=== PATIENT | female | born 1965 | race Hispanic/Latino ===

== ENCOUNTER 2018-05-07 01:00 | Emergency (ER) | payer OTHER ==
[~2018-05-07] VITALS: Ht 157.5 cm; Wt 81.6 kg
[~2018-05-07 01:00] MED LIST: Acetaminophen PO; HYDR25TA9 PO; LISI-410 PO
[2018-05-07 01:15] VITALS: BP 98/52
[2018-05-07] MEDS ORDERED: NS 1000ML 1,000 ML IV STA (01:22)
[2018-05-07] MEDS ORDERED: ZOFRAN IV STA (01:22)
--- NOTE | 2018-05-07 01:29 | ER.PDOC ---
General Chief Complaint: Nausea,Vomiting,Diarrhea Stated Complaint: VOMITING Time seen by MD: 01:26 Source: patient Exam Limitations: no limitations History of Present Illness Initial Comments Vomiting and abdominal pain, patient has left colostomy and worried of obstruction. Timing/Duration: 1-3 hours Severity/Quality: moderate Radiation: no radiation Associated Symptoms: nausea/vomiting Exacerbated by: nothing Relieved By: nothing Allergies: Coded Allergies: No Known Allergies (Unverified , 06/16/14) Home Meds Active Scripts [Acetaminophen] 500 MG TABLET No Conflict Check, 500 MG PO Q6H PRN for PAIN, TABLET Prov:TOM YEH MD 06/18/14 Reported Medications Hydrochlorothiazide (HYDROCHLOROTHIAZIDE) 25 Mg Tablet, 1 TAB PO DAILY, #30 TAB 5 Refills 06/17/14 Lisinopril (LISINOPRIL) 20 Mg Tablet, 1 TAB PO DAILY, #30 TAB 5 Refills 06/16/14 Vital Signs First Vital Signs Date Time Temp Pulse Resp B/P (MAP) Pulse Ox O2 Delivery O2 Flow Rate FiO2 05/07/18 01:02 97.9 73 16 97.9 05/07/18 01:02 95 Room Air 05/07/18 01:15 98/52 (67) Last Vital Signs Date Time Temp Pulse Resp B/P (MAP) Pulse Ox O2 Delivery O2 Flow Rate FiO2 05/07/18 01:15 97.9 73 16 98/52 (67) 95 Room Air 97.9 Past Medical History Medical History: arrhythmia, heart valve disease, hypertension, other Surgical History: cholecystectomy, hysterectomy, other LMP (females 10-50): hysterectomy Social History Smoking: non-smoker Alcohol Use: none Drug Use: none Constitutional: no symptoms reported EENTM: no symptoms reported Respiratory: no symptoms reported Cardiovascular: no symptoms reported Gastrointestinal: see HPI Genitourinary: no symptoms reported All Other Systems: Reviewed and Negative Physical Exam General Appearance: No Apparent Distress, WD/WN HEENT: PERRL/EOMI, Normal ENT Inspection, TMs Normal, Pharynx Normal Neck: Non-Tender, Full Range of Motion, Supple, Normal Inspection Respiratory: chest non-tender, lungs clear, normal breath sounds, no respiratory distress, no accessory muscle use Cardiovascular: Normal Peripheral Pulses, Regular Rate, Rhythm, No Edema, No Gallop, No JVD, No Murmur Gastrointestinal: Normal Bowel Sounds, No Organomegaly, No Pulsatile Mass, Guarding, Tenderness, Other (left colostomy) Back: Normal Inspection, No CVA Tenderness, No Vertebral Tenderness Extremities: Normal Range of Motion, Non-Tender, Normal Inspection, No Pedal Edema, No Calf Tenderness, Normal Capillary Refill, Pelvis Stable Neurologic/Psychiatric: credit checker II-XII NML as Tested, No Motor/Sensory Deficits, Alert, Normal Mood/Affect, Oriented x 3 Skin: Normal Color, Warm/Dry Progress Progress CT abdomen/pelvis: 1. No explanation for patient's symptoms. 2. Previous ostomy left lower quadrant, cholecystectomy and hysterectomy. 3. Medullary calcifications in both kidneys. 4. Hepatic steatosis. Course Vitals & review Data Vital Sign - Last 24 Hours 05/07/18 05/07/18 05/07/18 01:02 01:02 01:15 Temp 97.9 97.9 97.9 97.9 97.9 97.9 Pulse 73 84 73 Resp 16 18 16 B/P (MAP) 98/52 (67) Pulse Ox 95 95 O2 Delivery Room Air Room Air Departure Time of Disposition: 04:04 Disposition: 01 HOME, SELF-CARE Impression: Primary Impression: Gastroenteritis Condition: Stable Referrals: PCP,UNKNOWN (PCP) PRIMARY CARE PROVIDER Additional Instructions: Zofran Tramadol Start feeding with clear liquids and advance diet as tolerated F/U with PCP in 2-3 days Duration or Time Spent with Pa: 90 mins CHARLEEN BAH MD May 07, 2018 01:29
[2018-05-07 01:35] LABS: BASOPHIL % 0.3 % (0.0-0.2); EOSINOPHIL % 0.3 % (0.0-5.0); HEMOGLOBIN 15.5 g/dL (12.0-15.0); LYMPHOCYTES # 1.1 10^3/uL (1.0-4.8); LYMPHOCYTES % 13.5 % (24.0-44.0); MEAN CELL HGB 30.2 pg (26-34); MEAN CELL HGB CONCENTRATION 33.5 g/dL (33-37); MEAN CORP VOLUME 89.9 fL (78-100); MONOCYTES # 0.4 10^3/uL (0.3-0.8); MONOCYTES % 4.9 % (5.0-12.0); NEUTROPHIL # 6.5 10^3/uL (1.8-7.7); NEUTROPHILS % 80.7 % (41.0-85.0); RED CELL DISTRIBUTION WIDTH 12.8 % (11.5-14.5)
--- NOTE | 2018-05-07 01:56 | PCM.EKG ---
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
[2018-05-07 01:59] LABS: CALCIUM 9.6 mg/dL (8.4-10.5); CARBON DIOXIDE 29.3 mmol/L (20.0-32)
[2018-05-07] MEDS ORDERED: ZOFRAN ONE (02:48)
[2018-05-07] MEDS ORDERED: NS 1000ML 1,000 ML ONE (02:49)
--- NOTE | 2018-05-07 03:02 | DIREP ---
PROCEDURE:CT ABD/PELVIS WITHOUT CONTRAST TECHNIQUE:Axial cuts were obtained from the dome of the diaphragm to the ischial tuberosities. No intravenous contrast was given. The images were viewed at lung and soft tissue settings. Sagittal and coronal reconstructions are provided. COMPARISON:None. INDICATIONS:Abdominal pain and vomiting FINDINGS: LOWER CHEST:Streaky changes both lung bases posteriorly consistent with subsegmental atelectasis. LIVER:Diffuse fatty changes with no focal lesions. BILIARY:Previous cholecystectomy. PANCREAS:Normal. SPLEEN:Normal. URINARY TRACT:Small bilateral medullary calcifications. ADRENALS:Normal. AORTA/VASCULAR:Normal. RETROPERITONEUM:Normal. BOWEL/MESENTERY:Normal. ABDOMINAL WALL:Ostomy left lower quadrant. PELVIS:Previous hysterectomy. BONES:Normal. OTHER:Normal. CONCLUSION: 1. No explanation for patient's symptoms. 2. Previous ostomy left lower quadrant, cholecystectomy and hysterectomy. 3. Medullary calcifications in both kidneys. 4. Hepatic steatosis. Dictated by: Bobby Witt M.D. on 05/07/2018 at 02:50 AM
[2018-05-07 03:18] VITALS: BP 136/80
[2018-05-07] MEDS ORDERED: MORPHINE SULFATE ONE (03:38)
[2018-05-07] MEDS ORDERED: MORPHINE SULFATE IV STA (03:39)
[2018-05-07 03:47] LABS: BILIRUBIN,URINE NEGATIVE (NEGATIVE); UROBILINOGEN,URINE NORMAL (NEGATIVE)
[2018-05-07 03:49] VITALS: BP 131/85
[2018-05-07 03:51] LABS: APPEARANCE,URINE CLEAR (CLEAR); UA COLOR DARK YELLOW (YELLOW)
--- NOTE | 2018-05-07 04:15 | NUR ---
IV REMOVED IV FROM RT HAND. CATHETER ALL INTACT. HELD PRESSURE AND NO FURTHER BLEEDING. APPLIED COTTON AND COBAN.
[2018-05-07 04:26] VITALS: BP 136/80
== END 2018-05-07 04:15 | disposition home or self-care (01) ==
LOC: ER 01:00 → EDBD 01:00 → ER 04:15
DX: K52.9 Noninfective gastroenteritis and colitis, unspecified (principal); I49.9 Cardiac arrhythmia, unspecified; I38 Endocarditis, valve unspecified; I10 Essential (primary) hypertension; Z79.899 Other long term (current) drug therapy
CPT/HCPCS: 36415; 74176; 80053; 81002; 83690; 85025; 93005; 96361; 96374; 96375; 99285; J2270; J2405; J7030; Q9965

== ENCOUNTER 2020-06-11 23:04 | Inpatient (IN) | payer OTHER ==
[~2020-06-11] VITALS: Ht 157.5 cm; Wt 99.8 kg
[2020-06-11 23:21] VITALS: BP_SYST 103; BP_DIAS 62; BP_DIAS 82
[2020-06-11] MEDS ORDERED: NS 1000ML 1,000 ML IV STA (23:25)
[2020-06-11] MEDS ORDERED: ZOFRAN IV STA (23:25)
[2020-06-11] MEDS ORDERED: NS 1000ML 1,000 ML ONE (23:28)
[2020-06-11] MEDS ORDERED: ZOFRAN ONE (23:29)
[2020-06-11] MEDS ORDERED: SUBLIMAZE IV STA (23:29)
--- NOTE | 2020-06-11 23:31 | ER.PDOC ---
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 No report of fever. Timing/Duration: 4-6 hours, getting worse Severity/Quality: moderate, severe Radiation: LUQ, LLQ Associated Symptoms: nausea/vomiting Allergies: Coded Allergies: No Known Allergies (Unverified , 06/16/14) Home Meds Active Scripts [Acetaminophen] 500 MG TABLET No Conflict Check, 500 MG PO Q6H PRN for PAIN, TABLET Prov:TOM YEH MD 06/18/14 Reported Medications Hydrochlorothiazide (HYDROCHLOROTHIAZIDE) 25 Mg Tablet, 1 TAB PO DAILY, #30 TAB 5 Refills 06/17/14 Lisinopril (LISINOPRIL) 20 Mg Tablet, 1 TAB PO DAILY, #30 TAB 5 Refills 06/16/14 Vital Signs First Vital Signs Date Time Temp Pulse Resp B/P (MAP) Pulse Ox O2 Delivery O2 Flow Rate FiO2 06/11/20 23:21 98.2 71 18 06/11/20 23:21 103/62 (76) 98 Last Vital Signs Date Time Temp Pulse Resp B/P (MAP) Pulse Ox O2 Delivery O2 Flow Rate FiO2 06/11/20 23:21 98.2 71 18 98 06/11/20 23:21 103/62 (76) Past Medical History Medical History: cancer (colon cancer with resection and colostomy), diabetes ("pre diabetic"), hypertension Surgical History: cholecystectomy, , hysterectomy Family History Significant Family History: no pertinent family hx Social History Smoking: non-smoker Alcohol Use: none Drug Use: none Constitutional: no symptoms reported EENTM: no symptoms reported Respiratory: no symptoms reported Cardiovascular: no symptoms reported Gastrointestinal: abdominal pain, constipated (no stool output in colostomy today), nausea, vomiting Genitourinary: no symptoms reported Musculoskeletal: no symptoms reported Skin: no symptoms reported All Other Systems: Reviewed and Negative Physical Exam General Appearance: No Apparent Distress, Obese HEENT: PERRL/EOMI Neck: Full Range of Motion, Supple, Normal Inspection Respiratory: lungs clear, normal breath sounds, no respiratory distress, no accessory muscle use Cardiovascular: Regular Rate, Rhythm, No Murmur Gastrointestinal: Hypoactive bowel sounds, Soft, Tenderness Extremities: Normal Range of Motion, Non-Tender, Normal Inspection, No Pedal Edema, No Calf Tenderness Neurologic/Psychiatric: Alert, Normal Mood/Affect, Oriented x 3 Skin: Normal Color, Warm/Dry Results/Orders Results/Orders Orders - JAGRUTI HERNANDEZ DO Cbc With Auto Diff (06/11/20 23:25) Comprehensive Metabolic Panel (06/11/20 23:25) Amylase (06/11/20 23:25) Lipase (06/11/20:) PT (06/11/20:25) Ct Abd/Pel With Iv Contrast (06/11/20:) Partial Thromboplastin Time. (06/11/20:25) Urinalysis (06/11/20:) Saline Lock (06/11/20:25) Ondansetron Hcl/Pf (Zofran) (06/11/20 23:25) 0.9 % Sodium Chloride (Ns 1000ml) (06/11/20 23:25) Fentanyl Citrate/Pf (Sublimaze) (06/11/20 23:29) 0.9 % Sodium Chloride (Ns 1000ml) (06/11/20 23:28) Ondansetron Hcl/Pf (Zofran) (06/11/20 23:29) Promethazine Hcl (Phenergan) (06/12/20 00:13) Promethazine Hcl (Phenergan) (06/12/20 00:19) 0.9 % Sodium Chloride (Ns 1000ml) (06/12/20 02:15) Promethazine Hcl (Phenergan) (06/12/20 02:15) Fentanyl Citrate/Pf (Sublimaze) (06/12/20 02:17) Promethazine Hcl (Phenergan) (06/12/20 02:17) 0.9 % Sodium Chloride (Ns 1000ml) (06/12/20 02:17) Vital Signs Date Time Temp Pulse Resp B/P (MAP) Pulse Ox O2 Delivery O2 Flow Rate FiO2 06/11/20 23:21 98.2 71 18 98 06/11/20 23:21 98.2 71 18 103/62 (76) 98 06/11/20 23:21 98.2 71 18 Administered Medications Medications (Trade) Dose Ordered Sig/Mandie Route PRN Reason Start Time Stop Time Status Last Admin Dose Admin Fentanyl Citrate (Sublimaze) 50 mcg STAT STAT IV 06/11/20 23:29 06/11/20 23:30 UNV 06/11/20 23:43 50 MCG Ondansetron HCl (Zofran) 4 mg STAT STAT IV 06/11/20 23:25 06/11/20 23:27 DC 06/11/20 23:43 4 MG Promethazine HCl (Phenergan) 25 mg STAT STAT IV 06/12/20 00:19 06/12/20 00:20 DC 06/12/20 00:20 25 MG Sodium Chloride 1,000 ml @ 1,200 mls/hr Q50M STAT IV 06/11/20 23:25 06/12/20 00:14 DC 06/11/20 23:43 1,200 MLS/HR Laboratory Tests Test 06/11/20 23:20 White Blood Count 9.3 10^3/uL (4.5-11.0) Red Blood Count 5.18 10^6/uL (4.00-5.20) Hemoglobin 15.9 g/dL (12.0-15.0) H Hematocrit 47.1 % (36.0-46.0) H Mean Corpuscular Volume 90.9 fL (78-100) Mean Corpuscular Hemoglobin 30.7 pg (26-34) Mean Corpuscular Hemoglobin Concent 33.8 g/dL (33-36.5) Red Cell Distribution Width 11.9 % (11.5-14.5) Platelet Count 282 10^3/uL (150-400) Mean Platelet Volume 10.7 fL (7.8-11.0) Neutrophils (%) (Auto) 72.0 % (41.0-85.0) Lymphocytes (%) (Auto) 20.5 % (24.0-44.0) L Monocytes (%) (Auto) 6.7 % (5.0-12.0) Neutrophils # (Auto) 6.7 10^3/uL (1.8-7.7) Lymphocytes # (Auto) 1.90 10^3/uL1 (1.0-4.8) Monocytes # (Auto) 0.6 10^3/uL (0.3-0.8) Absolute Immature Granulocyte (auto 0 10^3 u/L (0-2) Absolute Eosinophils (auto) 0.1 10^3/uL (0.0-0.2) Immature Granulocytes % 0.00 % (0.00-0.50) Eosinophils % 0.5 % (0.0-5.0) Basophils % 0.3 % (0.0-0.2) H Basophils # 0.0 10^3/uL (0.0-0.1) Prothrombin Time 10.8 SEC (9.3-11.3) Prothrombin Time INR (Non-Therap) 1.1 Activated Partial Thromboplast Time 27.5 SEC (24.67-30.72) Sodium Level 138 mmol/L (132-145) Potassium Level 3.6 mmol/L (3.6-5.2) Chloride Level 102.0 mmol/L (96-109) Carbon Dioxide Level 23.7 mmol/L (20.0-32) Anion Gap 15.9 Blood Urea Nitrogen 16 mg/dL (7-18) Creatinine 0.93 mg/dL (0.59-1.40) Estimated GFR () 76.0 (>/=60) Est GFR (CKD-EPI)(Non-Afr Kyrgyz) 62.8 (>/=60) BUN/Creatinine Ratio 17.0 Glucose Level 160 mg/dL (70-110) H Calcium Level 9.8 mg/dL (8.4-10.5) Total Bilirubin 0.7 mg/dL (0.2-1.0) Aspartate Amino Transferase (AST) 46 U/L (0-35) H Alanine Aminotransferase (ALT) 77 U/L (12-78) Alkaline Phosphatase 117 U/L (50-136) Total Protein 8.0 g/dL (6.4-8.2) Albumin 3.9 g/dL (3.4-5.0) Globulin 4.1 Albumin/Globulin Ratio 0.951 Amylase Level 76 U/L (25-115) Lipase 109 U/L (114-286) L Progress Progress WBC WNL, gluc 160, AST 46--otherwise chemistry WNL. EKG/XRAY/CT/US CT Comments: no acute abdominal/pelvic abnormalities Consult/PCP Time Consult/PCP Called: 02:20 Consult/PCP: Dr. Alexander Reason/Comments: admit to [facility] ER DEPART Departure Time of Disposition: 02:22 Disposition: 09 ADMITTED INPATIENT Impression: Primary Impression: Abdominal pain Additional Impression: Intractable nausea and vomiting Condition: Improved Referrals: PCP,UNKNOWN (PCP) PRIMARY CARE PROVIDER Duration or Time Spent with Pa: 30 min Problem Qualifiers Primary Impression: Abdominal pain Abdominal location: left upper quadrant Qualified Codes: R10.12 - Left upper quadrant pain JAGRUTI HERNANDEZ DO Jun 11, 2020 23:31
[2020-06-11 23:57] LABS: BASOPHIL % 0.3 % (0.0-0.2); EOSINOPHIL # 0.1 10^3/uL (0.0-0.2); EOSINOPHIL % 0.5 % (0.0-5.0); LYMPHOCYTES % 20.5 % (24.0-44.0); MEAN CORP HGB 30.7 pg (26-34); MONOCYTES # 0.6 10^3/uL (0.3-0.8); MONOCYTES % 6.7 % (5.0-12.0); NEUTROPHIL # 6.7 10^3/uL (1.8-7.7); PLATELET COUNT 282 10^3/uL (150-400); RED CELL DISTRIBUTION WIDTH 11.9 % (11.5-14.5)
[2020-06-12] MEDS ORDERED: PHENERGAN ONE ×2 (00:13→02:15)
[2020-06-12] MEDS ORDERED: PHENERGAN IV STA ×2 (00:19→02:17)
[2020-06-12 01:09] LABS: CALCIUM 9.8 mg/dL (8.4-10.5); CARBON DIOXIDE 23.7 mmol/L (20.0-32)
--- NOTE | 2020-06-12 02:11 | DIREP ---
PROCEDURE:CT ABDOMEN/PELVIS W/ CONTRAST COMPARISON:[facility], CT, CT ABD/PELVIS W/O, 05/07/2018, 02:34 AM. INDICATIONS:abdominal pain with vomiting TECHNIQUE:Axial images were created through the abdomen and pelvis with non-ionic intravenous contrast material. No oral contrast was administered. Sagittal and coronal reconstructions were performed from source images. FINDINGS: LUNG BASES:Areas of linear atelectasis in both lung bases. LIVER:Diffuse decreased attenuation. No masses. BILIARY:The gallbladder is surgically absent. There is no biliary ductal dilatation. PANCREAS:Normal. No lesion, fluid collection, ductal dilatation, or atrophy. SPLEEN:Normal. No enlargement or focal lesion. ADRENALS:Normal. No mass or enlargement. URINARY TRACT:Normal. No focal lesions or hydronephrosis. AORTA/VASCULAR:Normal. No aneurysm. RETROPERITONEUM:Normal. No mass or adenopathy. BOWEL/MESENTERY:Prior distal colectomy with left lower quadrant colostomy. A nondilated loop of small bowel protrudes through the ostomy opening into the subcutaneous tissue. No obstruction, free air, or free fluid are present. The appendix appears normal. ABDOMINAL WALL:Small supraumbilical ventral hernia containing only fat. PELVIC ORGANS:The uterus is surgically absent. No visible mass. BONES:Normal for age. No bony lesion or acute fracture. OTHER:Negative. CONCLUSION: 1. No acute abdomen/pelvis abnormalities. 2. Prior distal colectomy with left lower quadrant colostomy. Parastomal hernia present containing a nondilated small bowel loop. 3. Fatty liver. 4. Small fat containing ventral hernia. 5. Prior cholecystectomy and hysterectomy. 6. Areas of linear atelectasis in the lung bases. Dictated by: Gordon Espinosa M.D. on 06/12/2020 at 01:58 AM
[2020-06-12] MEDS ORDERED: NS 1000ML 1,000 ML ONE (02:15)
[2020-06-12] MEDS ORDERED: NS 1000ML 1,000 ML IV STA (02:17)
[2020-06-12] MEDS ORDERED: SUBLIMAZE IV STA (02:17)
[2020-06-12] MEDS ORDERED: PHENERGAN IV PRN ×2 (02:30→03:30)
[2020-06-12] MEDS ORDERED: NS 1000ML 1,000 ML IV ONE (02:30)
--- NOTE | 2020-06-12 02:46 | NUR ---
HOSPITALIST AT BEDSIDE TO SPEAK WITH PATIENT PRIOR TO TRANSFER UPSTAIRS.
[2020-06-12] MEDS ORDERED: ZOFRAN IV PRN (03:30)
--- NOTE | 2020-06-12 03:30 | NUR ---
NGT HOSPITALIST SPOKE WITH PATIENT ABOUT PLACING AN NGT FOR COMFORT. PATIENT AGREED. ATTEMPTED TO PLACED NGT TO LEFT NARE, PATIENT UNABLE TO TOLERATE PROCEDURE, SOON TUBE GETS TO THE BACK OF HER THROAT SHE BEGINS SCREAMING, PULLING STAFF ARMS AWAY AND GAGGING, CAUSING NGT TO COIL UP IN MOUTH. HOSPITALIST NOTIFIED, STATES TO LEAVE OUT AT THIS TIME, ATTEMPT AGAIN AT LATER TIME.
--- NOTE | 2020-06-12 03:42 | PCM.HP ---
History of Present Illness Hx of Present Illness This is a 54 year old French speaking women who presents with upper abdominal pain starting Jun 11 in the afternoon. Historical details are limited due to language barrier. She has vomited several times and has continued to vomit in the ER despite dosed of phenergan and zofran. She has a hx of colon cancer treated with distal colectomy in [facility] in 2007. In 2013 she presented here with bowel obstruction and she improved with gastric decompression. She does not see outside physicians. Otherwise she has been in good health. PMH- Htn. takes lisinopril and hctz. She takes occasional tylenol for unspecified pain. She does not smoke or drink. She answered no to use of illegal drugs. Her believes she had no BM on Jun 11. Her labs are unremarkable. Travel History EBOLA RISK:Travel to/contact w: No Review of Systems Gastrointestinal: Nausea, Vomiting, Abdominal Pain Allergies: Coded Allergies: No Known Allergies (Unverified , 06/12/20) Scheduled Hydrochlorothiazide (Hydrochlorothiazide), 1 TAB PO DAILY, (Reported) Lisinopril (Lisinopril), 1 TAB PO DAILY, (Reported) Scheduled PRN [Acetaminophen], 500 MG PO Q6H PRN for PAIN VTE VTE Risk Score VTE Risk: Score 0-1 = Low Risk (Aggressive mobilization; early ambulation; no VTE prophylaxis required) Score 2: Moderate Risk (Intermittent/Pneumatic Compression Device OR Lovenox/Heparin/Coumadin) Score 3-4: High Risk (Intermittent/Pneumatic Compression Device AND Lovenox/Heparin/Coumadin) Score > or =5: Highest Risk (Intermittent/Pneumatic Compression Device AND Lovenox/Heparin/Coumadin) Exam Vital Signs Vital Signs Date Time Temp Pulse Resp B/P (MAP) Pulse Ox O2 Delivery O2 Flow Rate FiO2 06/11/20 23:21 98.2 71 18 98 06/11/20 23:21 103/62 (76) General Appearance: Alert, Cooperative, mild distress HEENT: Atraumatic, EOMI Respiratory: Clear to auscultation, Normal air movement Cardiovascular: Regular rate, Normal S1, Normal S2, No murmurs Abdominal: Soft, Other (colostomy in LLQ with small amt of soft stool. abdomen is mildly tender left side upper and mid abdomen. ) Extremities: No clubbing, No edema, Normal pulses Skin: No rash, No breakdown Assessment/Plan Assessment/Plan Assessment/Plan Left sided abdominal pain possibly related to parastomal hernia but without overt CT finding of bowel obstruction. She did not tolerated attempted NG tube. She seems to have settled down a bit so will just observe on the floor with some NS plus 20 kcl at 100 cc/hr. Toxic etiologies seem unlikely. Exact etiology unknown at this time. Patient History: Patient reports no known family medical history. SHELLEY QUIÑONEZ MD Jun 12, 2020 03:42 MARIAJOSE WRIHGT MD Jun 12, 2020 07:13
[2020-06-12 03:45] VITALS: BP 162/94
[2020-06-12] MEDS: NS 1000ML/KCL 20MEQ 1,000 ML IV SCH ×2 (04:49→15:57)
[2020-06-12 05:02] LABS: APPEARANCE,URINE CLEAR (CLEAR); BILIRUBIN,URINE NEGATIVE (NEGATIVE); UA COLOR YELLOW (YELLOW)
[2020-06-12 07:15] VITALS: BP 153/75
[2020-06-12] MEDS: SUBLIMAZE IV PRN ×2 (08:26→16:08)
--- NOTE | 2020-06-12 09:06 | DIREP ---
PROCEDURE:XR ABDOMEN 2 VIEWS COMPARISON:[facility], CT, CT ABD/PELVIS W/ CONTRAST, 06/12/2020, 01:20 AM. INDICATIONS:parostomal hernia TECHNIQUE:Flat and upright views of the abdomen are provided. FINDINGS: BOWEL GAS PATTERN:On the upright film, the right hemidiaphragm is elevated. No free air is seen. Small amount of gas identified in the small bowel along with gaseous distention of the stomach. No small bowel obstruction is seen. The mildly distended loops of small bowel may represent a mild ileus or partial obstruction. CALCIFICATIONS:None significant. Status post cholecystectomy. The renal and the Sos outlines are not adequately visualized. No organomegaly or pathologic calcifications are seen. LUNG BASES:Clear. BONES:Normal. OTHER:No additional findings. Contrast identified within the urinary bladder which may be related to the CT scan performed a few hours earlier. CONCLUSION:Mild gaseous distention of loops of bowel in the left abdomen, question mild ileus. No perforation is seen. Dictated by: Jay Geronimo MD on 06/12/2020 at 09:03 AM
[2020-06-12] MEDS: ZOFRAN IV PRN (11:06)
--- NOTE | 2020-06-12 11:27 | NUR ---
Patient vomited 30 ml of brown liquid Zofran given as per order will continue to monitor for med effectiveness.
[2020-06-12 11:30] VITALS: BP 131/87
--- NOTE | 2020-06-12 13:59 | PRM.PN ---
Subjective Subjective Date: Jun 12, 2020 Time: 14:34 Subjective Patient alert and oriented. Denies any fever. Complain of abdominal pain to the both right lower quadrant and left lower quadrant. She is producing a stool in the colostomy. She is not passing gas. Denies any shortness of breath Patient History: Patient reports no known family medical history. VTE VTE Risk Total Score: 2 VTE Risk Score VTE Risk: Score 0-1 = Low Risk (Aggressive mobilization; early ambulation; no VTE prophylaxis required) Score 2: Moderate Risk (Intermittent/Pneumatic Compression Device OR Lovenox/Heparin/Coumadin) Score 3-4: High Risk (Intermittent/Pneumatic Compression Device AND Lovenox/Heparin/Coumadin) Score > or =5: Highest Risk (Intermittent/Pneumatic Compression Device AND Lovenox/Heparin/Coumadin) Review of Systems Gastrointestinal: Nausea, Vomiting, Abdominal Pain Allergies: Coded Allergies: No Known Allergies (Unverified , 06/12/20) Scheduled Hydrochlorothiazide (Hydrochlorothiazide), 1 TAB PO DAILY, (Reported) Lisinopril (Lisinopril), 1 TAB PO DAILY, (Reported) Scheduled PRN [Acetaminophen], 500 MG PO Q6H PRN for PAIN Objective Vitals and I/O Vital Sign - Last 24 Hours 06/11/20 06/11/20 06/11/20 06/12/20 23:21 23:21 23:21 03:45 Temp 98.2 98.2 98.2 98.7 Pulse 71 71 71 98 Resp 18 18 18 18 B/P (MAP) 103/62 (76) 162/94 (116) Pulse Ox 98 98 94 O2 Delivery Room Air 06/12/20 06/12/20 06/12/20 06/12/20 03:45 03:47 07:15 11:30 Temp 98.9 98.3 Pulse 78 86 Resp 18 18 B/P (MAP) 153/75 (101) 131/87 (102) Pulse Ox 95 98 O2 Delivery Room Air Room Air Nasal Canula Nasal Canula O2 Flow Rate 2.00 2.00 Intake and Output 06/12/20 07:00 Intake Total 0 ml Output Total 0 ml Balance 0 ml General: Alert, Cooperative, mild distress HEENT: Atraumatic, EOMI Lungs: Clear to auscultation, Normal air movement Heart: Regular rate, Normal S1, Normal S2, No murmurs Abdomen: Soft, Other (colostomy in LLQ with small amt of soft stool. abdomen is mildly tender left side upper and mid abdomen. ) Extremities: No clubbing, No edema, Normal pulses All Results(Lab/Rad) Laboratory Tests Test 06/11/20 23:20 06/12/20 03:15 White Blood Count 9.3 10^3/uL Red Blood Count 5.18 10^6/uL Hemoglobin 15.9 g/dL Hematocrit 47.1 % Mean Corpuscular Volume 90.9 fL Mean Corpuscular Hemoglobin 30.7 pg Mean Corpuscular Hemoglobin Concent 33.8 g/dL Red Cell Distribution Width 11.9 % Platelet Count 282 10^3/uL Mean Platelet Volume 10.7 fL Neutrophils (%) (Auto) 72.0 % Lymphocytes (%) (Auto) 20.5 % Monocytes (%) (Auto) 6.7 % Neutrophils # (Auto) 6.7 10^3/uL Lymphocytes # (Auto) 1.90 10^3/uL1 Monocytes # (Auto) 0.6 10^3/uL Absolute Immature Granulocyte (auto 0 10^3 u/L Absolute Eosinophils (auto) 0.1 10^3/uL Immature Granulocytes % 0.00 % Eosinophils % 0.5 % Basophils % 0.3 % Basophils # 0.0 10^3/uL Prothrombin Time 10.8 SEC Prothrombin Time INR (Non-Therap) 1.1 Activated Partial Thromboplast Time 27.5 SEC Sodium Level 138 mmol/L Potassium Level 3.6 mmol/L Chloride Level 102.0 mmol/L Carbon Dioxide Level 23.7 mmol/L Anion Gap 15.9 Blood Urea Nitrogen 16 mg/dL Creatinine 0.93 mg/dL Estimated GFR () 76.0 Est GFR (CKD-EPI)(Non-Afr [place]an) 62.8 BUN/Creatinine Ratio 17.0 Glucose Level 160 mg/dL Calcium Level 9.8 mg/dL Total Bilirubin 0.7 mg/dL Aspartate Amino Transf (AST/SGOT) 46 U/L Alanine Aminotransferase (ALT/SGPT) 77 U/L Alkaline Phosphatase 117 U/L Total Protein 8.0 g/dL Albumin 3.9 g/dL Globulin 4.1 Albumin/Globulin Ratio 0.951 Amylase Level 76 U/L Lipase 109 U/L Urine Collection Type CCMS Urine Color YELLOW Urine Appearance CLEAR Urine Bilirubin NEGATIVE MG/DL Urine Ketones NEGATIVE Urine Specific [place] 1.015 Urine pH 7.5 Urine Protein NEGATIVE Urine Urobilinogen 1.0 Urine Nitrate NEGATIVE Urine Leukocyte Esterase NEGATIVE Urine Blood NEGATIVE Urine Glucose NEGATIVE Current Medications Medications (Trade) Dose Ordered Sig/Mandie Route PRN Reason Start Time Stop Time Status Last Admin Dose Admin Ondansetron HCl (Zofran) 4 mg STAT STAT IV 06/11/20 23:25 06/11/20 23:27 DC 06/11/20 23:43 Sodium Chloride 1,000 ml @ 1,200 mls/hr Q50M STAT IV 06/11/20 23:25 06/12/20 00:14 DC 06/11/20 23:43 Fentanyl Citrate (Sublimaze) 50 mcg STAT STAT IV 06/11/20 23:29 06/12/20 05:23 DC 06/11/20 23:43 Sodium Chloride 1,000 ml @ ud STK-MED ONCE .ROUTE 06/11/20 23:28 06/11/20 23:30 DC Ondansetron HCl (Zofran) 4 mg STK-MED ONCE .ROUTE 06/11/20 23:29 06/11/20 23:31 DC Promethazine HCl (Phenergan) 25 mg STK-MED ONCE .ROUTE 06/12/20 00:13 06/12/20 00:15 DC Promethazine HCl (Phenergan) 25 mg STAT STAT IV 06/12/20 00:19 06/12/20 00:20 DC 06/12/20 00:20 Sodium Chloride 1,000 ml @ ud STK-MED ONCE .ROUTE 06/12/20 02:15 06/12/20 02:17 DC Promethazine HCl (Phenergan) 25 mg STK-MED ONCE .ROUTE 06/12/20 02:15 06/12/20 02:17 DC Fentanyl Citrate (Sublimaze) 50 mcg STAT STAT IV 06/12/20 02:17 06/12/20 02:19 DC 06/12/20 02:23 Promethazine HCl (Phenergan) 25 mg STAT STAT IV 06/12/20 02:17 06/12/20 02:19 DC 06/12/20 02:23 Sodium Chloride 1,000 ml @ 1,200 mls/hr Q50M STAT IV 06/12/20 02:17 06/12/20 03:06 DC 06/12/20 02:23 Sodium Chloride 1,000 ml @ 150 mls/hr OT ONCE IV 06/12/20 02:30 06/12/20 09:09 DC 06/12/20 02:45 Promethazine HCl (Phenergan) 25 mg Q6H PRN IV NAUSEA / VOMITING 06/12/20 02:30 07/12/20 02:29 Fentanyl Citrate (Sublimaze) 50 mcg Q4H PRN IV pain 06/12/20 02:30 07/12/20 02:29 06/12/20 08:26 Ondansetron HCl (Zofran) 4 mg Q4H PRN IV NAUSEA / VOMITING 06/12/20 03:30 07/12/20 03:29 06/12/20 11:06 Ondansetron HCl (Zofran) 4 mg Q4H PRN IV NAUSEA / VOMITING 06/12/20 03:30 07/12/20 03:29 Promethazine HCl (Phenergan) 25 mg Q6H PRN IV NAUSEA / VOMITING 06/12/20 03:30 07/12/20 03:29 Potassium Chloride/Sodium Chloride 1,000 ml @ 100 mls/hr Q10H IV 06/12/20 03:30 07/12/20 03:29 06/12/20 04:49 Course Sepsis Screening Results: Posi: NEGATIVE Sepsis Qualifier/Stage: NO DEFINITE RISK Duration or Total Time Spent w: 30 min Vitals & review Data Vital Sign - Last 24 Hours 06/11/20 06/11/20 06/11/20 06/12/20 23:21 23:21 23:21 03:45 Temp 98.2 98.2 98.2 98.7 Pulse 71 71 71 98 Resp 18 18 18 18 B/P (MAP) 103/62 (76) 162/94 (116) Pulse Ox 98 98 94 O2 Delivery Room Air 06/12/20 06/12/20 06/12/20 06/12/20 03:45 03:47 07:15 11:30 Temp 98.9 98.3 Pulse 78 86 Resp 18 18 B/P (MAP) 153/75 (101) 131/87 (102) Pulse Ox 95 98 O2 Delivery Room Air Room Air Nasal [place] Nasal [place] O2 Flow Rate 2.00 2.00 Intake and Output 06/12/20 07:00 Intake Total 0 ml Output Total 0 ml Balance 0 ml Laboratory Tests Test 06/11/20 23:20 06/12/20 03:15 White Blood Count 9.3 10^3/uL Red Blood Count 5.18 10^6/uL Hemoglobin 15.9 g/dL Hematocrit 47.1 % Mean Corpuscular Volume 90.9 fL Mean Corpuscular Hemoglobin 30.7 pg Mean Corpuscular Hemoglobin Concent 33.8 g/dL Red Cell Distribution Width 11.9 % Platelet Count 282 10^3/uL Mean Platelet Volume 10.7 fL Neutrophils (%) (Auto) 72.0 % Lymphocytes (%) (Auto) 20.5 % Monocytes (%) (Auto) 6.7 % Neutrophils # (Auto) 6.7 10^3/uL Lymphocytes # (Auto) 1.90 10^3/uL1 Monocytes # (Auto) 0.6 10^3/uL Absolute Immature Granulocyte (auto 0 10^3 u/L Absolute Eosinophils (auto) 0.1 10^3/uL Immature Granulocytes % 0.00 % Eosinophils % 0.5 % Basophils % 0.3 % Basophils # 0.0 10^3/uL Prothrombin Time 10.8 SEC Prothrombin Time INR (Non-Therap) 1.1 Activated Partial Thromboplast Time 27.5 SEC Sodium Level 138 mmol/L Potassium Level 3.6 mmol/L Chloride Level 102.0 mmol/L Carbon Dioxide Level 23.7 mmol/L Anion Gap 15.9 Blood Urea Nitrogen 16 mg/dL Creatinine 0.93 mg/dL Estimated GFR () 76.0 Est GFR (CKD-EPI)(Non-Afr Ugandan) 62.8 BUN/Creatinine Ratio 17.0 Glucose Level 160 mg/dL Calcium Level 9.8 mg/dL Total Bilirubin 0.7 mg/dL Aspartate Amino Transf (AST/SGOT) 46 U/L Alanine Aminotransferase (ALT/SGPT) 77 U/L Alkaline Phosphatase 117 U/L Total Protein 8.0 g/dL Albumin 3.9 g/dL Globulin 4.1 Albumin/Globulin Ratio 0.951 Amylase Level 76 U/L Lipase 109 U/L Urine Collection Type CCMS Urine Color YELLOW Urine Appearance CLEAR Urine Bilirubin NEGATIVE MG/DL Urine Ketones NEGATIVE Urine Specific [place] 1.015 Urine pH 7.5 Urine Protein NEGATIVE Urine Urobilinogen 1.0 Urine Nitrate NEGATIVE Urine Leukocyte Esterase NEGATIVE Urine Blood NEGATIVE Urine Glucose NEGATIVE Current Medications Medications (Trade) Dose Ordered Sig/Mandie PRN Reason Start Time Stop Time Status Last Admin Fentanyl Citrate (Sublimaze) 50 mcg Q4H PRN pain 06/12/20 02:30 07/12/20 02:29 06/12/20 08:26 Ondansetron HCl (Zofran) 4 mg Q4H PRN NAUSEA / VOMITING 06/12/20 03:30 07/12/20 03:29 06/12/20 11:06 Ondansetron HCl (Zofran) 4 mg Q4H PRN NAUSEA / VOMITING 06/12/20 03:30 07/12/20 03:29 Potassium Chloride/Sodium Chloride 1,000 ml @ 100 mls/hr Q10H 06/12/20 03:30 07/12/20 03:29 06/12/20 04:49 Promethazine HCl (Phenergan) 25 mg Q6H PRN NAUSEA / VOMITING 06/12/20 02:30 07/12/20 02:29 Promethazine HCl (Phenergan) 25 mg Q6H PRN NAUSEA / VOMITING 06/12/20 03:30 07/12/20 03:29 LEVEL 1 SEPSIS INFECTION CRITE: Abdominal Pain O2 Sat by Pulse Oximetry: 98 Oxygen Flow Rate: 2.00 Assessment/Plan Assessment/Plan Assessment/Plan Left sided abdominal pain possibly related to parastomal hernia but without overt CT finding of bowel obstruction. She did not tolerated attempted NG tube. She seems to have settled down a bit so will just observe on the floor with some NS plus 20 kcl at 100 cc/hr. Toxic etiologies seem unlikely. Exact etiology unknown at this time. Plan 1. Small bowel obstruction with parastomal hernia. Abdominal pain seems to be better with pain medication. She is afebrile and the abdomen is nondistended. We will repeat the abdomen x-ray With the finding of Mild gaseous distention of loops of bowel in the left abdomen, question mild ileus. No perforation is seen.Patient is still n.p.o. She is passing stool through the colostomy. Because of the findings on the x-ray and the physical exam I consider this patient should be n.p.o. until we had a small bowel series. If shows obstruction will discuss with surgeon. Plan Continue IV fluid N.p.o. Small bowel series shows contrast in the stomach. Surgeon consult was done overnight. DW Dr. Garcia 2. History of stage III colon cancer with resection terminal colostomy. Patient has a recent endoscopy done at [facility] for follow-up with the finding of no evidence of recurrence of the cancer. Patient has been admitted twice for the same symptoms of small bowel obstruction and perhaps he may need a referral to surgeon for correction of the parastomal hernia 3. Prediabetes Monitor blood sugars MARIAJOSE WRIGHT MD Jun 12, 2020 13:59
--- NOTE | 2020-06-12 15:47 | DIREP ---
PROCEDURE:XRAY ABDOMEN SINGLE VW COMPARISON:[facility], CR, XRAY ABDOMEN 2VW, 06/12/2020, 08:25 AM. INDICATIONS:ABD PAIN; VOMITING FINDINGS: BOWEL GAS PATTERN:[id number] distention small bowel loops. CALCIFICATIONS:None significant. LUNG BASES:Mild opacity left lung base suggesting pneumonia or atelectasis. BONES:Normal. OTHER:Oral contrast in the stomach. CONCLUSION:Oral contrast in the stomach. [id number] distention of small bowel loops. Correlate for obstruction. Dictated by: Kevin Montelongo M.D. on 06/12/2020 at 02:44 PM Read in [place]
[2020-06-12 16:45] VITALS: BP 142/90
--- NOTE | 2020-06-12 17:13 | NUR ---
Right hand IV not flushing ,Patient c/o pain not flushing , removed.
[2020-06-12] MEDS ORDERED: DILAUDID ONE (18:33)
[2020-06-12] MEDS ORDERED: DILAUDID IV ONE (19:00)
--- NOTE | 2020-06-12 19:06 | PCM.HP ---
HISTORY & PHYSICAL HISTORY & PHYSICAL CHIEF COMPLAINT: Right upper quadrant pain HISTORY OF PRESENT ILLNESS: 54-year-old female presents to the emergency room with nausea and vomiting x4 days. She reports that she has had something like this once before and although ended up doing was doing a CAT scan. She denies any intolerance to food. She r eports the pain is located in the right upper quadrant and radiates to her back. She states that the pain is sharp in nature. She is reporting that the fentanyl is not doing much for her. She reports that she underwent chemo radiation and what sounds like an APR for rectal cancer back in 2007. And her current colostomy is designed to be permanent. She is continuing to have normal ostomy output with no change in amount or nature of the ostomy output. She reports that she is only vomiting solid foods she is able to take in liquids without vomiting. ALLERGIES: No known drug allergies CURRENT MEDICATIONS: See med list PAST MEDICAL HISTORY: Rectal cancer, elevated cholesterol, high blood pressure PAST SURGICAL HISTORY: APR SOCIAL HISTORY: Denies tobacco alcohol or drug use FAMILY HISTORY: Father: Prostate cancer no history of colon cancer in the family REVIEW OF SYSTEM: Constitutional: Denies fevers chills or sick contacts HEENT: Denies issues with her eyes, hearing, swallowing, enlarged lymph nodes CVS: Positive for high blood pressure and cholesterol Lungs: Denies shortness of breath OR cough Abdomen: Abdominal pain in the right upper quadrant, positive for nausea, vomiting. Extremities: Full range of motion Neuro: Denies headache, blurry vision, double vision, lightheadedness, syncope Psych: Denies anxiety depression PHYSICAL EXAMINATION: VITAL SIGNS: See vitals in chart GENERAL: Patient in mild distress HEENT: NCAT, Pupils equal round reactive to light, extraocular muscles intact, sclera white, hearing intact, neck supple, NG tube present, no LAD LUNGS: Clear to auscultation bilaterally HEART: Regular rate and rhythm ABDOMEN: Soft, tenderness to palpation right upper quadrant, bowel sounds hypo-, ostomy present left lower quadrant, abdomen obese, nondistended EXTREMITIES: 2+ distal pulses In all extremities NEUROLOGIC: Alert and oriented x3, GCS 15 LABORATORY DATA Laboratory results reviewed, CT scans reviewed, abdominal x-rays IMPRESSION: 54-year-old female with a left lower quadrant parastomal hernia containing small bowel but currently no evidence of obstruction, with right upper quadrant pain radiating to her back PLAN: 1. Would currently treat patient likes partial small bowel obstruction versus ileus with NG tube decompression and serial exams and x-rays. 2. Currently unlikely that left lower quadrant parastomal hernia and right upper quadrant pain are related. 3. We will get ultrasound of right upper quadrant to look for possible signs of cholecystitis vs symptomatic cholelithiasis. 4. Surgery to follow. 5. Change pain medicine to dialudid and toradol 6. Recommend stopping the SBFT and hooking up the NGT to LWIS now ADIA GARCIA MD Jun 12, 2020 19:06
--- NOTE | 2020-06-12 19:20 | NUR ---
Patient c/o of pain dilauded 0.5mg given as per order, NGT on right nare in low suction well tolerated inserted, patient afebrile , voided adequate amount of clear yellow urine, soft stool noted on colostomy bag, patient Endorsed to night auditor nurse sable after all due cares rendered.
[2020-06-12 20:35] VITALS: BP 165/78
--- NOTE | 2020-06-12 20:53 | DIREP ---
PROCEDURE:CHEST 1 VIEW COMPARISON:None. INDICATIONS:NG PLACEMENT FINDINGS: LUNGS/PLEURA:Elevation of the right hemidiaphragm to the level of the hilum. Mild right basilar atelectasis. Left lower lung obscured by the cardiac silhouette. No definite acute infiltrate. CARDIAC:Prominent cardiac silhouette and normal pulmonary vascularity. MEDIASTINUM:Normal BONES:Normal OTHER:NGT in the gastric body. CONCLUSION:Limited study. No acute process seen. Dictated by: Елена Villela MD on 06/12/2020 at 08:48 PM
[2020-06-12] MEDS: TORADOL IV SCH (21:26)
[2020-06-12 23:50] VITALS: BP 126/75
--- NOTE | 2020-06-12 23:56 | NUR ---
Blood sugar Bedside blood glucose obtained. WBG = 154. Nurse notified.
[2020-06-13] MEDS: NS 1000ML/KCL 20MEQ 1,000 ML IV SCH ×3 (00:04→19:44)
[2020-06-13 04:51] VITALS: BP 153/96
[2020-06-13] MEDS: TORADOL IV SCH ×2 (05:03→13:41)
[2020-06-13 05:58] LABS: BASOPHIL % 0.1 % (0.0-0.2); LYMPHOCYTES # 1.08 10^3/uL1 (1.0-4.8); MONOCYTES # 0.7 10^3/uL (0.3-0.8); MONOCYTES % 10.2 % (5.0-12.0); NEUTROPHILS % 73.7 % (41.0-85.0); PLATELET COUNT 273 10^3/uL (150-400); RED CELL DISTRIBUTION WIDTH 12.3 % (11.5-14.5)
[2020-06-13 06:38] LABS: CALCIUM 8.6 mg/dL (8.4-10.5); CARBON DIOXIDE 26.4 mmol/L (20.0-32)
[2020-06-13 08:00] VITALS: BP 137/91
--- NOTE | 2020-06-13 08:04 | DIREP ---
PROCEDURE:XRAY ACUTE ABD INCL UPRIGHT CHEST TECHNIQUE :A single PA view of the chest is provided. Flat and upright views of the abdomen are also provided. COMPARISON:[facility], CT, CT ABD/PELVIS W/ CONTRAST, 06/12/2020, 01:20 AM. [facility], CR, XRAY CHEST SINGLE VW, 06/12/2020, 08:20 PM. INDICATIONS:sbo FINDINGS: LUNGS/PLEURA:Bibasilar atelectasis. No definite effusion. No pneumothorax. VASCULATURE:Normal. Unremarkable pulmonary vasculature. CARDIAC:Heart size accentuated by poor inspiratory effort MEDIASTINUM:Normal. No visible mass or adenopathy. BONES:Normal. No fracture or visible bony lesion. OTHER:Nasogastric tube in position. BOWEL GAS PATTERN:Minimal contrast within the stomach. There is only a small amount of bowel gas, limiting evaluation. Distended small bowel, in keeping with the given history of small bowel obstruction FREE AIR:None. CALCIFICATIONS:None significant. OTHER:Cholecystectomy clips CONCLUSION:Nasogastric tube in position, with a few scattered loops of dilated small bowel, in keeping with given history of small bowel obstruction. Free air is not identified. Lungs reveal bibasilar atelectasis. Dictated by: Gregory Christy MD on 06/13/2020 at 08:01 AM
[2020-06-13] MEDS: ZOFRAN IV PRN (09:19)
[2020-06-13 11:00] VITALS: BP 156/93
--- NOTE | 2020-06-13 12:39 | PRM.PN ---
Progress Note Subjective Physician Notes: Emesis x1 last night. Patient currently without pain. Reporting minimal output from ostomy. Objective Review IO, Exams,& Results Problems Acute/Active Problems: (1) Abdominal pain (2) Intractable nausea and vomiting (3) Small bowel obstruction Vital Signs Date Time Temp Pulse Resp B/P (MAP) Pulse Ox O2 Delivery O2 Flow Rate FiO2 06/13/20 04:51 97.5 86 18 153/96 (115) 91 Nasal [place] 06/12/20 21:00 2.00 28 Intake and Output 06/13/20 07:00 Intake Total 1390 ml Output Total 800 ml Balance 590 ml Intake Oral 360 ml IV Total 1030 ml Output Urine Total 400 ml Gastric Drainage Total 400 ml # Voids 3 Laboratory Tests Test 06/11/20 23:20 06/12/20 03:15 06/12/20 23:56 06/13/20 04:56 White Blood Count 9.3 10^3/uL 6.7 10^3/uL Red Blood Count 5.18 10^6/uL 4.61 10^6/uL Hemoglobin 15.9 g/dL 14.3 g/dL Hematocrit 47.1 % 42.6 % Mean Corpuscular Volume 90.9 fL 92.4 fL Mean Corpuscular Hemoglobin 30.7 pg 31.0 pg Mean Corpuscular Hemoglobin Concent 33.8 g/dL 33.6 g/dL Red Cell Distribution Width 11.9 % 12.3 % Platelet Count 282 10^3/uL 273 10^3/uL Mean Platelet Volume 10.7 fL 9.5 fL Neutrophils (%) (Auto) 72.0 % 73.7 % Lymphocytes (%) (Auto) 20.5 % 16.0 % Monocytes (%) (Auto) 6.7 % 10.2 % Neutrophils # (Auto) 6.7 10^3/uL 5.0 10^3/uL Lymphocytes # (Auto) 1.90 10^3/uL1 1.08 10^3/uL1 Monocytes # (Auto) 0.6 10^3/uL 0.7 10^3/uL Absolute Immature Granulocyte (auto 0 10^3 u/L 0 10^3 u/L Absolute Eosinophils (auto) 0.1 10^3/uL 0.0 10^3/uL Immature Granulocytes % 0.00 % 0.00 % Eosinophils % 0.5 % 0.0 % Basophils % 0.3 % 0.1 % Basophils # 0.0 10^3/uL 0.0 10^3/uL Prothrombin Time 10.8 SEC Prothrombin Time INR (Non-Therap) 1.1 Activated Partial Thromboplast Time 27.5 SEC Sodium Level 138 mmol/L 144 mmol/L Potassium Level 3.6 mmol/L 4.2 mmol/L Chloride Level 102.0 mmol/L 108.0 mmol/L Carbon Dioxide Level 23.7 mmol/L 26.4 mmol/L Anion Gap 15.9 13.8 Blood Urea Nitrogen 16 mg/dL 21 mg/dL Creatinine 0.93 mg/dL 0.93 mg/dL Estimated GFR () 76.0 76.0 Est GFR (CKD-EPI)(Non-Afr [place]) 62.8 62.8 BUN/Creatinine Ratio 17.0 22.0 Glucose Level 160 mg/dL 147 mg/dL Calcium Level 9.8 mg/dL 8.6 mg/dL Total Bilirubin 0.7 mg/dL 0.6 mg/dL Aspartate Amino Transf (AST/SGOT) 46 U/L 39 U/L Alanine Aminotransferase (ALT/SGPT) 77 U/L 68 U/L Alkaline Phosphatase 117 U/L 95 U/L Total Protein 8.0 g/dL 6.7 g/dL Albumin 3.9 g/dL 3.2 g/dL Globulin 4.1 3.5 Albumin/Globulin Ratio 0.951 0.914 Amylase Level 76 U/L Lipase 109 U/L Urine Collection Type CCMS Urine Color YELLOW Urine Appearance CLEAR Urine Bilirubin NEGATIVE MG/DL Urine Ketones NEGATIVE Urine Specific [place] 1.015 Urine pH 7.5 Urine Protein NEGATIVE Urine Urobilinogen 1.0 Urine Nitrate NEGATIVE Urine Leukocyte Esterase NEGATIVE Urine Blood NEGATIVE Urine Glucose NEGATIVE Bedside Glucose 154 Test 06/13/20 05:45 Bedside Glucose 156 Current Medications Medications (Trade) Dose Ordered Sig/Mandie PRN Reason Start Time Stop Time Status Last Admin Hydromorphone HCl (Dilaudid) 0.5 mg Q4H PRN PAIN 4-6 06/12/20 19:30 07/12/20 19:29 Hydromorphone HCl (Dilaudid) 1 mg Q4H PRN PAIN 7 - 10 06/12/20 19:30 07/12/20 19:29 Ketorolac Tromethamine (Toradol) 30 mg Q8HR 06/12/20 22:00 06/14/20 14:01 06/13/20 05:03 Ondansetron HCl (Zofran) 4 mg Q4H PRN NAUSEA / VOMITING 06/12/20 03:30 07/12/20 03:29 06/13/20 09:19 Potassium Chloride/Sodium Chloride 1,000 ml @ 100 mls/hr Q10H 06/12/20 03:30 07/12/20 03:29 06/13/20 09:30 Promethazine HCl (Phenergan) 25 mg Q6H PRN NAUSEA / VOMITING 06/12/20 02:30 07/12/20 02:29 Orders - ADIA GARCIA MD Ngt To Lis (06/12/20 17:41) Insert Ng Tube (06/12/20 17:41) Hydromorphone Hcl (Dilaudid) (06/12/20 19:30) Hydromorphone Hcl (Dilaudid) (06/12/20 19:30) Ketorolac Tromethamine (Toradol) (06/12/20 22:00) Us Gallbladder (06/13/20 06:00) Xr Abd W/Chest (06/13/20 06:00) Heart: Regular rate, Normal S1, Normal S2, No murmurs Abdomen: Soft, No tenderness, Other (Hypoactive bowel sounds) Lungs: Clear to auscultation, Normal air movement Assessment & Plan: Assessment 54-year-old female with parastomal hernia and resolution of right upper quadrant pain. Plan 1. Encourage ambulation 2. Continue NG tube 3. Abdominal x-rays unremarkable without evidence of dilation to suggest bowel obstruction. Although certainly read like obstructive pattern by radiologist. 4. Repeat x-ray in the morning ADIA GARCIA MD Jun 13, 2020 12:39
--- NOTE | 2020-06-13 13:08 | DIREP ---
PROCEDURE:US ABDOMEN LIMITED (SINGLE ORGAN - QUAD) COMPARISON:[facility], CT, CT ABD/PELVIS W/ CONTRAST, 06/12/2020, 01:[address] [facility], CT, CT ABD/PELVIS W/O, 05/07/2018, 02:34 AM. INDICATIONS:RUQ pain TECHNIQUE:High resolution sonographic examination was performed of the abdomen. FINDINGS: PANCREAS:The pancreas is obscured by overlying bowel gas. LIVER:Diffuse increased hepatic echogenicity, suggesting significant hepatic steatosis. There is decreased sonographic penetration which limits evaluation of the deeper hepatic segments. GALLBLADDER:The gallbladder is nonvisualized and appears surgically absent on the previous CT. BILIARY:The common duct measures up to approximately 5 mm diameter and is within normal limits. RIGHT KIDNEY:The right kidney measures approximately 9.5 x 5.2 x 5.3 cm. No hydronephrosis. OTHER:No significant ascites. CONCLUSION: 1. Previous cholecystectomy. No biliary ductal dilatation. 2. Significant hepatic steatosis. Dictated [facility]: [facility] Phys[facility] on 06/13/2020 at 12:34 PM
[2020-06-13 16:35] VITALS: BP 135/84
--- NOTE | 2020-06-13 17:24 | PRM.PN ---
Subjective Subjective Date: Jun 13, 2020 Time: 17:17 Subjective Patient complaining of decrease of the abdominal pain. She is not passing gas through the colostomy. She has old stool from yesterday. Denies any fever. She is n.p.o. with nasogastric tube draining about 500 mL overnight Patient History: FHx: prostate cancer VTE VTE Risk Total Score: 2 VTE Risk Score VTE Risk: Score 0-1 = Low Risk (Aggressive mobilization; early ambulation; no VTE prophylaxis required) Score 2: Moderate Risk (Intermittent/Pneumatic Compression Device OR Lovenox/Heparin/Coumadin) Score 3-4: High Risk (Intermittent/Pneumatic Compression Device AND Lovenox/Heparin/Coumadin) Score > or =5: Highest Risk (Intermittent/Pneumatic Compression Device AND Lovenox/Heparin/Coumadin) Review of Systems Gastrointestinal: Nausea, Vomiting, Abdominal Pain Allergies: Coded Allergies: No Known Allergies (Unverified , 06/12/20) Scheduled Hydrochlorothiazide (Hydrochlorothiazide), 1 TAB PO DAILY, (Reported) Lisinopril (Lisinopril), 1 TAB PO DAILY, (Reported) Scheduled PRN [Acetaminophen], 500 MG PO Q6H PRN for PAIN Objective Vitals and I/O Vital Sign - Last 24 Hours 06/12/20 06/12/20 06/12/20 06/13/20 20:35 21:00 23:50 01:25 Temp 98.8 98.3 Pulse 103 88 Resp 18 16 17 B/P (MAP) 165/78 (107) 126/75 (92) Pulse Ox 88 91 90 O2 Delivery Room Air Nasal Cannula Room Air Room Air O2 Flow Rate 2.00 FiO2 28 06/13/20 06/13/20 06/13/20 06/13/20 04:51 08:00 08:00 08:00 Temp 97.5 98.8 Pulse 86 77 Resp 18 18 B/P (MAP) 153/96 (115) 137/91 (106) Pulse Ox 91 95 O2 Delivery Nasal Canula Room Air Nasal Canula Room Air O2 Flow Rate 2.00 06/13/20 06/13/20 10:00 11:00 Temp 98.3 Pulse 77 84 Resp 18 18 B/P (MAP) 156/93 (114) Pulse Ox 95 94 O2 Delivery Room Air Room Air FiO2 21 Intake and Output0 06/13/20 07:00 Intake Total 1390 ml Output Total 800 ml Balance 590 ml General: Alert, Cooperative, mild distress HEENT: Atraumatic, EOMI Lungs: Clear to auscultation, Normal air movement Heart: Regular rate, Normal S1, Normal S2, No murmurs Abdomen: Soft, No tenderness, Other (Hypoactive bowel sounds) Extremities: No clubbing, No edema, Normal pulses Skin: No rashes Neuro: Normal gait, Normal speech, Strength at 5/5 X4 ext, Normal tone, Sensation intact Psych/Mental Status: Mental status NL, Mood NL All Results(Lab/Rad) Laboratory Tests Test 06/11/20 23:20 06/12/20 03:15 White Blood Count 9.3 10^3/uL Red Blood Count 5.18 10^6/uL Hemoglobin 15.9 g/dL Hematocrit 47.1 % Mean Corpuscular Volume 90.9 fL Mean Corpuscular Hemoglobin 30.7 pg Mean Corpuscular Hemoglobin Concent 33.8 g/dL Red Cell Distribution Width 11.9 % Platelet Count 282 10^3/uL Mean Platelet Volume 10.7 fL Neutrophils (%) (Auto) 72.0 % Lymphocytes (%) (Auto) 20.5 % Monocytes (%) (Auto) 6.7 % Neutrophils # (Auto) 6.7 10^3/uL Lymphocytes # (Auto) 1.90 10^3/uL1 Monocytes # (Auto) 0.6 10^3/uL Absolute Immature Granulocyte (auto 0 10^3 u/L Absolute Eosinophils (auto) 0.1 10^3/uL Immature Granulocytes % 0.00 % Eosinophils % 0.5 % Basophils % 0.3 % Basophils # 0.0 10^3/uL Prothrombin Time 10.8 SEC Prothrombin Time INR (Non-Therap) 1.1 Activated Partial Thromboplast Time 27.5 SEC Sodium Level 138 mmol/L Potassium Level 3.6 mmol/L Chloride Level 102.0 mmol/L Carbon Dioxide Level 23.7 mmol/L Anion Gap 15.9 Blood Urea Nitrogen 16 mg/dL Creatinine 0.93 mg/dL Estimated GFR () 76.0 Est GFR (CKD-EPI)(Non-Afr Venezuelan) 62.8 BUN/Creatinine Ratio 17.0 Glucose Level 160 mg/dL Calcium Level 9.8 mg/dL Total Bilirubin 0.7 mg/dL Aspartate Amino Transf (AST/SGOT) 46 U/L Alanine Aminotransferase (ALT/SGPT) 77 U/L Alkaline Phosphatase 117 U/L Total Protein 8.0 g/dL Albumin 3.9 g/dL Globulin 4.1 Albumin/Globulin Ratio 0.951 Amylase Level 76 U/L Lipase 109 U/L Urine Collection Type CCMS Urine Color YELLOW Urine Appearance CLEAR Urine Bilirubin NEGATIVE MG/DL Urine Ketones NEGATIVE Urine Specific [place] 1.015 Urine pH 7.5 Urine Protein NEGATIVE Urine Urobilinogen 1.0 Urine Nitrate NEGATIVE Urine Leukocyte Esterase NEGATIVE Urine Blood NEGATIVE Urine Glucose NEGATIVE Current Medications Medications (Trade) Dose Ordered Sig/Mandie Route PRN Reason Start Time Stop Time Status Last Admin Dose Admin Ondansetron HCl (Zofran) 4 mg STAT STAT IV 06/11/20 23:25 06/11/20 23:27 DC 06/11/20 23:43 Sodium Chloride 1,000 ml @ 1,200 mls/hr Q50M STAT IV 06/11/20 23:25 06/12/20 00:14 DC 06/11/20 23:43 Fentanyl Citrate (Sublimaze) 50 mcg STAT STAT IV 06/11/20 23:29 06/12/20 05:23 DC 06/11/20 23:43 Sodium Chloride 1,000 ml @ ud STK-MED ONCE .ROUTE 06/11/20 23:28 06/11/20 23:30 DC Ondansetron HCl (Zofran) 4 mg STK-MED ONCE .ROUTE 06/11/20 23:29 06/11/20 23:31 DC Promethazine HCl (Phenergan) 25 mg STK-MED ONCE .ROUTE 06/12/20 00:13 06/12/20 00:15 DC Promethazine HCl (Phenergan) 25 mg STAT STAT IV 06/12/20 00:19 06/12/20 00:20 DC 06/12/20 00:20 Sodium Chloride 1,000 ml @ ud STK-MED ONCE .ROUTE 06/12/20 02:15 06/12/20 02:17 DC Promethazine HCl (Phenergan) 25 mg STK-MED ONCE .ROUTE 06/12/20 02:15 06/12/20 02:17 DC Fentanyl Citrate (Sublimaze) 50 mcg STAT STAT IV 06/12/20 02:17 06/12/20 02:19 DC 06/12/20 02:23 Promethazine HCl (Phenergan) 25 mg STAT STAT IV 06/12/20 02:17 06/12/20 02:19 DC 06/12/20 02:23 Sodium Chloride 1,000 ml @ 1,200 mls/hr Q50M STAT IV 06/12/20 02:17 06/12/20 03:06 DC 06/12/20 02:23 Sodium Chloride 1,000 ml @ 150 mls/hr OT ONCE IV 06/12/20 02:30 06/12/20 09:09 DC 06/12/20 02:45 Promethazine HCl (Phenergan) 25 mg Q6H PRN IV NAUSEA / VOMITING 06/12/20 02:30 07/12/20 02:29 Fentanyl Citrate (Sublimaze) 50 mcg Q4H PRN IV pain 06/12/20 02:30 07/12/20 02:29 06/12/20 08:26 Ondansetron HCl (Zofran) 4 mg Q4H PRN IV NAUSEA / VOMITING 06/12/20 03:30 07/12/20 03:29 06/12/20 11:06 Ondansetron HCl (Zofran) 4 mg Q4H PRN IV NAUSEA / VOMITING 06/12/20 03:30 07/12/20 03:29 Promethazine HCl (Phenergan) 25 mg Q6H PRN IV NAUSEA / VOMITING 06/12/20 03:30 07/12/20 03:29 Potassium Chloride/Sodium Chloride 1,000 ml @ 100 mls/hr Q10H IV 06/12/20 03:30 07/12/20 03:29 06/12/20 04:49 Course Sepsis Screening Results: Posi: NEGATIVE Sepsis Qualifier/Stage: NO DEFINITE RISK Duration or Total Time Spent w: 30 min Vitals & review Data Vital Sign - Last 24 Hours 06/11/20 06/11/20 06/11/20 06/12/20 23:21 23:21 23:21 03:45 Temp 98.2 98.2 98.2 98.7 Pulse 71 71 71 98 Resp 18 18 18 18 B/P (MAP) 103/62 (76) 162/94 (116) Pulse Ox 98 98 94 O2 Delivery Room Air 06/12/20 06/12/20 06/12/20 06/12/20 03:45 03:47 07:15 11:30 Temp 98.9 98.3 Pulse 78 86 Resp 18 18 B/P (MAP) 153/75 (101) 131/87 (102) Pulse Ox 95 98 O2 Delivery Room Air Room Air Nasal Canula Nasal Canula O2 Flow Rate 2.00 2.00 Intake and Output 06/12/20 07:00 Intake Total 0 ml Output Total 0 ml Balance 0 ml Laboratory Tests Test 06/11/20 23:20 06/12/20 03:15 White Blood Count 9.3 10^3/uL Red Blood Count 5.18 10^6/uL Hemoglobin 15.9 g/dL Hematocrit 47.1 % Mean Corpuscular Volume 90.9 fL Mean Corpuscular Hemoglobin 30.7 pg Mean Corpuscular Hemoglobin Concent 33.8 g/dL Red Cell Distribution Width 11.9 % Platelet Count 282 10^3/uL Mean Platelet Volume 10.7 fL Neutrophils (%) (Auto) 72.0 % Lymphocytes (%) (Auto) 20.5 % Monocytes (%) (Auto) 6.7 % Neutrophils # (Auto) 6.7 10^3/uL Lymphocytes # (Auto) 1.90 10^3/uL1 Monocytes # (Auto) 0.6 10^3/uL Absolute Immature Granulocyte (auto 0 10^3 u/L Absolute Eosinophils (auto) 0.1 10^3/uL Immature Granulocytes % 0.00 % Eosinophils % 0.5 % Basophils % 0.3 % Basophils # 0.0 10^3/uL Prothrombin Time 10.8 SEC Prothrombin Time INR (Non-Therap) 1.1 Activated Partial Thromboplast Time 27.5 SEC Sodium Level 138 mmol/L Potassium Level 3.6 mmol/L Chloride Level 102.0 mmol/L Carbon Dioxide Level 23.7 mmol/L Anion Gap 15.9 Blood Urea Nitrogen 16 mg/dL Creatinine 0.93 mg/dL Estimated GFR () 76.0 Est GFR (CKD-EPI)(Non-Afr Venezuelan) 62.8 BUN/Creatinine Ratio 17.0 Glucose Level 160 mg/dL Calcium Level 9.8 mg/dL Total Bilirubin 0.7 mg/dL Aspartate Amino Transf (AST/SGOT) 46 U/L Alanine Aminotransferase (ALT/SGPT) 77 U/L Alkaline Phosphatase 117 U/L Total Protein 8.0 g/dL Albumin 3.9 g/dL Globulin 4.1 Albumin/Globulin Ratio 0.951 Amylase Level 76 U/L Lipase 109 U/L Urine Collection Type CCMS Urine Color YELLOW Urine Appearance CLEAR Urine Bilirubin NEGATIVE MG/DL Urine Ketones NEGATIVE Urine Specific [place] 1.015 Urine pH 7.5 Urine Protein NEGATIVE Urine Urobilinogen 1.0 Urine Nitrate NEGATIVE Urine Leukocyte Esterase NEGATIVE Urine Blood NEGATIVE Urine Glucose NEGATIVE Current Medications Medications (Trade) Dose Ordered Sig/Mandie PRN Reason Start Time Stop Time Status Last Admin Fentanyl Citrate (Sublimaze) 50 mcg Q4H PRN pain 06/12/20 02:30 07/12/20 02:29 06/12/20 08:26 Ondansetron HCl (Zofran) 4 mg Q4H PRN NAUSEA / VOMITING 06/12/20 03:30 07/12/20 03:29 06/12/20 11:06 Ondansetron HCl (Zofran) 4 mg Q4H PRN NAUSEA / VOMITING 06/12/20 03:30 07/12/20 03:29 Potassium Chloride/Sodium Chloride 1,000 ml @ 100 mls/hr Q10H 06/12/20 03:30 07/12/20 03:29 06/12/20 04:49 Promethazine HCl (Phenergan) 25 mg Q6H PRN NAUSEA / VOMITING 06/12/20 02:30 07/12/20 02:29 Promethazine HCl (Phenergan) 25 mg Q6H PRN NAUSEA / VOMITING 06/12/20 03:30 07/12/20 03:29 LEVEL 1 SEPSIS INFECTION CRITE: Abdominal Pain LEVEL 2-SIRS (LIST ALL THAT AP: None/Not assessed Cardiovascular Evidence: Not Assessed or None Hematologic Evidence: None/Not assessed Hepatic Evidence: None/Not assessed Metabolic Evidence: None/Not assessed Neurological Evidence: None/Not assessed Respiratory Evidence: None/Not assessed Renal Evidence: None/Not assessed O2 Sat by Pulse Oximetry: 94 Oxygen Flow Rate: 2.00 Assessment/Plan Assessment/Plan Assessment/Plan 54-year-old female presented with a complaint of abdominal pain. Initially found to have suspected a small bowel obstruction on CAT scan of the abdomen. She has no improvement of the pain and appears distended. A new KUB was done and shows evidence of gas distention. Small bowel series shows.Oral contrast in the stomach. [id number] distention of small bowel loops. Correlate for obstruction.She had a nasogastric tube placed for decompression 1. Small bowel obstruction with parastomal hernia. 2. History of stage III colon cancer with resection terminal colostomy. 3. Prediabetes Plan 1. Small bowel obstruction with parastomal hernia. Abdominal pain seems to be better with pain medication. She is afebrile and the abdomen is nondistended. We will repeat the abdomen x-ray With the finding of Mild gaseous distention of loops of bowel in the left abdomen, question mild ileus. No perforation is seen.Patient is still n.p.o. She is passing stool through the colostomy. Because of the findings on the x-ray and the physical exam I consider this patient should be n.p.o. until we had a small bowel series. If shows obstruction will discuss with surgeon. Bowel status with contrast shows Oral contrast in the stomach. [id number] distention of small bowel loops. Correlate for obstruction.Patient was evaluated by surgeon who considered the patient to have the nasogastric tube placed for decompression.Nasogastric tube was placed and x-ray shows evidence of NGT in the stomach. After NGT was placed to LIS, the patient had about 500 mL of greenish material output. Plan Continue IV fluid N.p.o. Nasogastric tube to LIS Surgeon consult was done overnight. RAMÍREZ Garcia 2. History of stage III colon cancer with resection terminal colostomy. Patient has a recent endoscopy done at [facility] for follow-up with the finding of no evidence of recurrence of the cancer. Patient has been admitted twice for the same symptoms of small bowel obstruction and perhaps he may need a referral to surgeon for correction of the parastomal hernia 3. Prediabetes Monitor blood sugars MARIAJOSE WRIGHT MD Jun 13, 2020 17:24
--- NOTE | 2020-06-13 19:48 | NUR ---
Patient in bed NGT on low suction 1400 emptied , pain management effective, small brown soft BM . no acute change in condition endorsed to vp sales nurse .
[2020-06-13 20:00] VITALS: BP 128/51
[2020-06-14 00:05] VITALS: BP 133/89
[2020-06-14] MEDS: TORADOL IV SCH ×3 (01:15→09:42)
[2020-06-14] MEDS: NS 1000ML/KCL 20MEQ 1,000 ML IV SCH ×2 (05:30→16:30)
[2020-06-14 06:53] LABS: EOSINOPHIL % 0.2 % (0.0-5.0); LYMPHOCYTES # 0.91 10^3/uL1 (1.0-4.8); LYMPHOCYTES % 20.4 % (24.0-44.0); MEAN CORP HGB 30.6 pg (26-34); MONOCYTES # 0.7 10^3/uL (0.3-0.8); MONOCYTES % 14.6 % (5.0-12.0); NEUTROPHIL # 2.9 10^3/uL (1.8-7.7); NEUTROPHILS % 64.8 % (41.0-85.0); PLATELET COUNT 262 10^3/uL (150-400); RED CELL DISTRIBUTION WIDTH 12.2 % (11.5-14.5)
[2020-06-14 07:22] VITALS: BP 147/97
[2020-06-14 07:24] LABS: CALCIUM 9.1 mg/dL (8.4-10.5); CARBON DIOXIDE 27.7 mmol/L (20.0-32)
--- NOTE | 2020-06-14 09:13 | DIREP ---
PROCEDURE:XRAY ACUTE ABD INCL UPRIGHT CHEST COMPARISON:[facility], CR, XRAY ACUTE ABD INCL UPRIGHT CHEST, 06/13/2020, 07:17 AM. INDICATIONS:psbo TECHNIQUE:Flat and upright views of the abdomen and a PA view of the chest are provided. FINDINGS: LUNGS/PLEURA:Mild patchy opacities in both lung bases suggesting pneumonia, edema versus atelectasis. CARDIAC:Normal. MEDIASTINUM:Normal. BONES:No acute findings. BOWEL GAS PATTERN:Mildly distended small bowel loops suspicious for bowel obstruction. FREE AIR:None. CALCIFICATIONS:None significant. OTHER:NG tube tip projects over the stomach, side hole projects at the GE junction. Recommend advancement of the side hole is below the GE junction. Status post cholecystectomy. CONCLUSION:Mildly distended small bowel loops suspicious for obstruction. Suggest advancement of the NG tube so the side hole is below the GE junction. Mild opacities in both lung bases. Dictated by: Kevin Montelongo M.D. on 06/14/2020 at 09:09 AM
[2020-06-14 12:27] VITALS: BP 174/107
--- NOTE | 2020-06-14 14:00 | NUR ---
PT NG CLAMPED. DIET IS CHARGED TO CLEAR LIQUID DIET
--- NOTE | 2020-06-14 14:11 | NUR ---
BED BATH GIVEN, BED AND LINEN CHANGED. COLOSTOMY BAG AND DRESSING CHANGED. STOMA IS RED AND INTACT WITH NO DRAINAGE.
[2020-06-14 14:25] VITALS: BP 143/94
--- NOTE | 2020-06-14 16:03 | PRM.PN ---
Progress Note Subjective Physician Notes: Doing better, no pain, having ostomy output Objective Review IO, Exams,& Results Problems Acute/Active Problems: (1) Abdominal pain (2) Intractable nausea and vomiting (3) Small bowel obstruction Vital Signs Date Time Temp Pulse Resp B/P (MAP) Pulse Ox O2 Delivery O2 Flow Rate FiO2 06/14/20 12:27 98.1 82 18 174/107 (129) 96 Room Air 06/14/20 09:54 2.00 06/13/20 23:50 21 Intake and Output 06/14/20 07:00 Intake Total 0 ml Output Total 800 ml Balance -800 ml Intake Oral 0 ml Output Urine Total 400 ml Gastric Drainage Total 400 ml # Voids 3 # Bowel Movements 1 Laboratory Tests Test 06/12/20 23:56 06/13/20 04:56 06/13/20 05:45 06/14/20 06:09 Bedside Glucose 154 156 White Blood Count 6.7 10^3/uL 4.5 10^3/uL Red Blood Count 4.61 10^6/uL 4.48 10^6/uL Hemoglobin 14.3 g/dL 13.7 g/dL Hematocrit 42.6 % 41.9 % Mean Corpuscular Volume 92.4 fL 93.5 fL Mean Corpuscular Hemoglobin 31.0 pg 30.6 pg Mean Corpuscular Hemoglobin Concent 33.6 g/dL 32.7 g/dL Red Cell Distribution Width 12.3 % 12.2 % Platelet Count 273 10^3/uL 262 10^3/uL Mean Platelet Volume 9.5 fL 9.6 fL Neutrophils (%) (Auto) 73.7 % 64.8 % Lymphocytes (%) (Auto) 16.0 % 20.4 % Monocytes (%) (Auto) 10.2 % 14.6 % Neutrophils # (Auto) 5.0 10^3/uL 2.9 10^3/uL Lymphocytes # (Auto) 1.08 10^3/uL1 0.91 10^3/uL1 Monocytes # (Auto) 0.7 10^3/uL 0.7 10^3/uL Absolute Immature Granulocyte (auto 0 10^3 u/L 0 10^3 u/L Absolute Eosinophils (auto) 0.0 10^3/uL 0.0 10^3/uL Immature Granulocytes % 0.00 % 0.00 % Eosinophils % 0.0 % 0.2 % Basophils % 0.1 % 0.0 % Basophils # 0.0 10^3/uL 0.0 10^3/uL Sodium Level 144 mmol/L 146 mmol/L Potassium Level 4.2 mmol/L 4.4 mmol/L Chloride Level 108.0 mmol/L 111.0 mmol/L Carbon Dioxide Level 26.4 mmol/L 27.7 mmol/L Anion Gap 13.8 11.7 Blood Urea Nitrogen 21 mg/dL 34 mg/dL Creatinine 0.93 mg/dL 0.84 mg/dL Estimated GFR () 76.0 85.5 Est GFR (CKD-EPI)(Non-Afr Spanish) 62.8 70.7 BUN/Creatinine Ratio 22.0 40.0 Glucose Level 147 mg/dL 136 mg/dL Calcium Level 8.6 mg/dL 9.1 mg/dL Total Bilirubin 0.6 mg/dL 0.5 mg/dL Aspartate Amino Transf (AST/SGOT) 39 U/L 29 U/L Alanine Aminotransferase (ALT/SGPT) 68 U/L 56 U/L Alkaline Phosphatase 95 U/L 84 U/L Total Protein 6.7 g/dL 6.4 g/dL Albumin 3.2 g/dL 3.2 g/dL Globulin 3.5 3.2 Albumin/Globulin Ratio 0.914 1.000 Current Medications Medications (Trade) Dose Ordered Sig/Mandie PRN Reason Start Time Stop Time Status Last Admin Hydromorphone HCl (Dilaudid) 0.5 mg Q4H PRN PAIN 4-6 06/12/20 19:30 07/12/20 19:29 Hydromorphone HCl (Dilaudid) 1 mg Q4H PRN PAIN 7 - 10 06/12/20 19:30 07/12/20 19:29 Ondansetron HCl (Zofran) 4 mg Q4H PRN NAUSEA / VOMITING 06/12/20 03:30 07/12/20 03:29 06/13/20 09:19 Potassium Chloride/Sodium Chloride 1,000 ml @ 100 mls/hr Q10H 06/12/20 03:30 07/12/20 03:29 06/13/20 19:44 Promethazine HCl (Phenergan) 25 mg Q6H PRN NAUSEA / VOMITING 06/12/20 02:30 07/12/20 02:29 Orders - ADIA GARCIA MD Ngt To Lis (06/12/20 17:41) Insert Ng Tube (06/12/20 17:41) Hydromorphone Hcl (Dilaudid) (06/12/20 19:30) Hydromorphone Hcl (Dilaudid) (06/12/20 19:30) Us Gallbladder (06/13/20 06:00) Xr Abd W/Chest (06/13/20 06:00) Xr Abd W/Chest (06/14/20 06:00) Ngt To Lis (06/14/20 12:47) Clear Liquid Diet (06/14/20 Lunch) Heart: Regular rate, Normal S1, Normal S2, No murmurs Abdomen: Soft, No tenderness, Other (Hypoactive bowel sounds) Lungs: Clear to auscultation, Normal air movement Skin: No rashes Assessment & Plan: Assessment 54 yo F with parastomal hernia Plan 1. Clamp NGT 2. start clears 3. Encourage ambulation ADIA GARCIA MD Jun 14, 2020 16:03
[2020-06-14] MEDS: DILAUDID IV PRN (16:37)
--- NOTE | 2020-06-14 21:18 | PRM.PN ---
Subjective Events since last encounter NGT placed yesterday. Her abdominal pain is better. Xrays continue to show mild bowel dilation. She states that the surgeon has no immediate plan to do surgery. BP has been mildly elevated at times. She tolerated clear liquids today. Laboratory Tests Test 06/14/20 06:09 White Blood Count 4.5 10^3/uL Red Blood Count 4.48 10^6/uL Hemoglobin 13.7 g/dL Hematocrit 41.9 % Mean Corpuscular Volume 93.5 fL Mean Corpuscular Hemoglobin 30.6 pg Mean Corpuscular Hemoglobin Concent 32.7 g/dL Red Cell Distribution Width 12.2 % Platelet Count 262 10^3/uL Mean Platelet Volume 9.6 fL Neutrophils (%) (Auto) 64.8 % Lymphocytes (%) (Auto) 20.4 % Monocytes (%) (Auto) 14.6 % Neutrophils # (Auto) 2.9 10^3/uL Lymphocytes # (Auto) 0.91 10^3/uL1 Monocytes # (Auto) 0.7 10^3/uL Absolute Immature Granulocyte (auto 0 10^3 u/L Absolute Eosinophils (auto) 0.0 10^3/uL Immature Granulocytes % 0.00 % Eosinophils % 0.2 % Basophils % 0.0 % Basophils # 0.0 10^3/uL Sodium Level 146 mmol/L Potassium Level 4.4 mmol/L Chloride Level 111.0 mmol/L Carbon Dioxide Level 27.7 mmol/L Anion Gap 11.7 Blood Urea Nitrogen 34 mg/dL Creatinine 0.84 mg/dL Estimated GFR () 85.5 Est GFR (CKD-EPI)(Non-Afr [place] Citizen) 70.7 BUN/Creatinine Ratio 40.0 Glucose Level 136 mg/dL Calcium Level 9.1 mg/dL Total Bilirubin 0.5 mg/dL Aspartate Amino Transf (AST/SGOT) 29 U/L Alanine Aminotransferase (ALT/SGPT) 56 U/L Alkaline Phosphatase 84 U/L Total Protein 6.4 g/dL Albumin 3.2 g/dL Globulin 3.2 Albumin/Globulin Ratio 1.000 Current Medications Medications (Trade) Dose Ordered Sig/Mandie Route PRN Reason Start Time Stop Time Status Last Admin Dose Admin Ondansetron HCl (Zofran) 4 mg STAT STAT IV 06/11/20 23:25 06/11/20 23:27 DC 06/11/20 23:43 Sodium Chloride 1,000 ml @ 1,200 mls/hr Q50M STAT IV 06/11/20 23:25 06/12/20 00:14 DC 06/11/20 23:43 Fentanyl Citrate (Sublimaze) 50 mcg STAT STAT IV 06/11/20 23:29 06/12/20 05:23 DC 06/11/20 23:43 Sodium Chloride 1,000 ml @ ud STK-MED ONCE .ROUTE 06/11/20 23:28 06/11/20 23:30 DC Ondansetron HCl (Zofran) 4 mg STK-MED ONCE .ROUTE 06/11/20 23:29 06/11/20 23:31 DC Promethazine HCl (Phenergan) 25 mg STK-MED ONCE .ROUTE 06/12/20 00:13 06/12/20 00:15 DC Promethazine HCl (Phenergan) 25 mg STAT STAT IV 06/12/20 00:19 06/12/20 00:20 DC 06/12/20 00:20 Sodium Chloride 1,000 ml @ ud STK-MED ONCE .ROUTE 06/12/20 02:15 06/12/20 02:17 DC Promethazine HCl (Phenergan) 25 mg STK-MED ONCE .ROUTE 06/12/20 02:15 06/12/20 02:17 DC Fentanyl Citrate (Sublimaze) 50 mcg STAT STAT IV 06/12/20 02:17 06/12/20 02:19 DC 06/12/20 02:23 Promethazine HCl (Phenergan) 25 mg STAT STAT IV 06/12/20 02:17 06/12/20 02:19 DC 06/12/20 02:23 Sodium Chloride 1,000 ml @ 1,200 mls/hr Q50M STAT IV 06/12/20 02:17 06/12/20 03:06 DC 06/12/20 02:23 Sodium Chloride 1,000 ml @ 150 mls/hr OT ONCE IV 06/12/20 02:30 06/12/20 09:09 DC 06/12/20 02:45 Promethazine HCl (Phenergan) 25 mg Q6H PRN IV NAUSEA / VOMITING 06/12/20 02:30 07/12/20 02:29 Fentanyl Citrate (Sublimaze) 50 mcg Q4H PRN IV pain 06/12/20 02:30 06/12/20 18:34 DC 06/12/20 16:08 Ondansetron HCl (Zofran) 4 mg Q4H PRN IV NAUSEA / VOMITING 06/12/20 03:30 07/12/20 03:29 06/13/20 09:19 Ondansetron HCl (Zofran) 4 mg Q4H PRN IV NAUSEA / VOMITING 06/12/20 03:30 06/12/20 18:36 DC Promethazine HCl (Phenergan) 25 mg Q6H PRN IV NAUSEA / VOMITING 06/12/20 03:30 06/12/20 18:36 DC Potassium Chloride/Sodium Chloride 1,000 ml @ 100 mls/hr Q10H IV 06/12/20 03:30 07/12/20 03:29 06/14/20 16:30 Hydromorphone HCl (Dilaudid) 0.5 mg OT ONCE IV 06/12/20 19:00 06/12/20 20:33 DC 06/12/20 18:40 Hydromorphone HCl (Dilaudid) 2 mg STK-MED ONCE .ROUTE 06/12/20 18:33 06/12/20 18:35 DC Hydromorphone HCl (Dilaudid) 0.5 mg Q4H PRN IV PAIN 4-6 06/12/20 19:30 07/12/20 19:29 Hydromorphone HCl (Dilaudid) 1 mg Q4H PRN IV PAIN 7 - 10 06/12/20 19:30 07/12/20 19:29 06/14/20 16:37 Ketorolac Tromethamine (Toradol) 30 mg Q8HR IV 06/12/20 22:00 06/14/20 14:01 DC 06/14/20 09:42 Objective Exam,Results,Procedures abdomen is soft. L-cta cor RRR no edema Assessment & Plan Problems/DX: (1) Small bowel obstruction Provider Note: Continue NGT for now. possible removal soon if she tolerates advance of diet. SHELLEY QUIÑONEZ MD Jun 14, 2020 21:18
[2020-06-14 22:24] VITALS: BP 175/94
[2020-06-15 01:22] VITALS: BP 156/90
[2020-06-15] MEDS: NS 1000ML/KCL 20MEQ 1,000 ML IV SCH ×3 (01:30→21:30)
[2020-06-15 05:52] VITALS: BP 156/90
[2020-06-15 05:56] VITALS: BP 165/92
[2020-06-15 05:57] LABS: BASOPHIL % 0.4 % (0.0-0.2); EOSINOPHIL % 0.3 % (0.0-5.0); LYMPHOCYTES # 1.37 10^3/uL1 (1.0-4.8); LYMPHOCYTES % 20.3 % (24.0-44.0); MEAN CORP HGB 31.1 pg (26-34); MONOCYTES # 0.6 10^3/uL (0.3-0.8); MONOCYTES % 9.2 % (5.0-12.0); NEUTROPHIL # 4.7 10^3/uL (1.8-7.7); NEUTROPHILS % 69.4 % (41.0-85.0); PLATELET COUNT 246 10^3/uL (150-400); RED CELL DISTRIBUTION WIDTH 12.1 % (11.5-14.5)
[2020-06-15 06:20] LABS: CALCIUM 8.1 mg/dL (8.4-10.5)
[2020-06-15 08:28] VITALS: BP 163/93
[2020-06-15] MEDS: DILAUDID IV PRN ×3 (09:15→19:07)
--- NOTE | 2020-06-15 13:29 | PRM.PN ---
Subjective Subjective Date: Jun 15, 2020 Time: 12:25 Subjective Patient alert and oriented. Denies any fever. Complain of abdominal pain to the both right lower quadrant and left lower quadrant. She is producing a stool in the colostomy. She is not passing gas. Denies any shortness of breath Patient History: FHx: prostate cancer VTE VTE Risk Total Score: 2 VTE Risk Score VTE Risk: Score 0-1 = Low Risk (Aggressive mobilization; early ambulation; no VTE prophylaxis required) Score 2: Moderate Risk (Intermittent/Pneumatic Compression Device OR Lovenox/Heparin/Coumadin) Score 3-4: High Risk (Intermittent/Pneumatic Compression Device AND Lovenox/Heparin/Coumadin) Score > or =5: Highest Risk (Intermittent/Pneumatic Compression Device AND Lovenox/Heparin/Coumadin) Reasons not ordering prophylax: Medical Contraindication Review of Systems Constitutional: Weakness, Malaise Respiratory: SOB with excertion Gastrointestinal: Nausea, Abdominal Pain Allergies: Coded Allergies: No Known Allergies (Unverified , 06/12/20) Scheduled Hydrochlorothiazide (Hydrochlorothiazide), 1 TAB PO DAILY, (Reported) Lisinopril (Lisinopril), 1 TAB PO DAILY, (Reported) Scheduled PRN [Acetaminophen], 500 MG PO Q6H PRN for PAIN Objective Vitals and I/O Vital Sign - Last 24 Hours 06/14/20 06/14/20 06/14/20 06/15/20 14:25 20:20 22:24 01:22 Temp 99.4 98.7 99.0 Pulse 80 84 82 85 Resp 18 B/P (MAP) 143/94 (110) 175/94 (121) 156/90 (112) Pulse Ox 97 97 98 96 O2 Delivery Room Air Nasal Cannula O2 Flow Rate 2.00 FiO2 28 06/15/20 06/15/20 06/15/20 06/15/20 01:23 05:52 05:56 08:28 Temp 98.1 99.4 99.2 Pulse 85 82 85 Resp 18 18 B/P (MAP) 156/90 (112) 165/92 (116) 163/93 (116) Pulse Ox 96 95 O2 Delivery Room Air Room Air Intake and Output 06/15/20 07:00 Intake Total 0 ml Balance 0 ml General: Alert, Cooperative, mild distress HEENT: Atraumatic, EOMI Lungs: Clear to auscultation, Normal air movement Heart: Regular rate, Normal S1, Normal S2, No murmurs Abdomen: Soft, No tenderness, Other (Hypoactive bowel sounds) Extremities: No clubbing, No edema, Normal pulses Skin: No rashes Neuro: Normal gait, Normal speech, Strength at 5/5 X4 ext, Normal tone, Sensation intact Psych/Mental Status: Mental status NL, Mood NL All Results(Lab/Rad) Laboratory Tests Test 06/11/20 23:20 06/12/20 03:15 White Blood Count 9.3 10^3/uL Red Blood Count 5.18 10^6/uL Hemoglobin 15.9 g/dL Hematocrit 47.1 % Mean Corpuscular Volume 90.9 fL Mean Corpuscular Hemoglobin 30.7 pg Mean Corpuscular Hemoglobin Concent 33.8 g/dL Red Cell Distribution Width 11.9 % Platelet Count 282 10^3/uL Mean Platelet Volume 10.7 fL Neutrophils (%) (Auto) 72.0 % Lymphocytes (%) (Auto) 20.5 % Monocytes (%) (Auto) 6.7 % Neutrophils # (Auto) 6.7 10^3/uL Lymphocytes # (Auto) 1.90 10^3/uL1 Monocytes # (Auto) 0.6 10^3/uL Absolute Immature Granulocyte (auto 0 10^3 u/L Absolute Eosinophils (auto) 0.1 10^3/uL Immature Granulocytes % 0.00 % Eosinophils % 0.5 % Basophils % 0.3 % Basophils # 0.0 10^3/uL Prothrombin Time 10.8 SEC Prothrombin Time INR (Non-Therap) 1.1 Activated Partial Thromboplast Time 27.5 SEC Sodium Level 138 mmol/L Potassium Level 3.6 mmol/L Chloride Level 102.0 mmol/L Carbon Dioxide Level 23.7 mmol/L Anion Gap 15.9 Blood Urea Nitrogen 16 mg/dL Creatinine 0.93 mg/dL Estimated GFR () 76.0 Est GFR (CKD-EPI)(Non-Afr Haitian) 62.8 BUN/Creatinine Ratio 17.0 Glucose Level 160 mg/dL Calcium Level 9.8 mg/dL Total Bilirubin 0.7 mg/dL Aspartate Amino Transf (AST/SGOT) 46 U/L Alanine Aminotransferase (ALT/SGPT) 77 U/L Alkaline Phosphatase 117 U/L Total Protein 8.0 g/dL Albumin 3.9 g/dL Globulin 4.1 Albumin/Globulin Ratio 0.951 Amylase Level 76 U/L Lipase 109 U/L Urine Collection Type CCMS Urine Color YELLOW Urine Appearance CLEAR Urine Bilirubin NEGATIVE MG/DL Urine Ketones NEGATIVE Urine Specific [place] 1.015 Urine pH 7.5 Urine Protein NEGATIVE Urine Urobilinogen 1.0 Urine Nitrate NEGATIVE Urine Leukocyte Esterase NEGATIVE Urine Blood NEGATIVE Urine Glucose NEGATIVE Current Medications Medications (Trade) Dose Ordered Sig/Mandie Route PRN Reason Start Time Stop Time Status Last Admin Dose Admin Ondansetron HCl (Zofran) 4 mg STAT STAT IV 06/11/20 23:25 06/11/20 23:27 DC 06/11/20 23:43 Sodium Chloride 1,000 ml @ 1,200 mls/hr Q50M STAT IV 06/11/20 23:25 06/12/20 00:14 DC 06/11/20 23:43 Fentanyl Citrate (Sublimaze) 50 mcg STAT STAT IV 06/11/20 23:29 06/12/20 05:23 DC 06/11/20 23:43 Sodium Chloride 1,000 ml @ ud STK-MED ONCE .ROUTE 06/11/20 23:28 06/11/20 23:30 DC Ondansetron HCl (Zofran) 4 mg STK-MED ONCE .ROUTE 06/11/20 23:29 06/11/20 23:31 DC Promethazine HCl (Phenergan) 25 mg STK-MED ONCE .ROUTE 06/12/20 00:13 06/12/20 00:15 DC Promethazine HCl (Phenergan) 25 mg STAT STAT IV 06/12/20 00:19 06/12/20 00:20 DC 06/12/20 00:20 Sodium Chloride 1,000 ml @ ud STK-MED ONCE .ROUTE 06/12/20 02:15 06/12/20 02:17 DC Promethazine HCl (Phenergan) 25 mg STK-MED ONCE .ROUTE 06/12/20 02:15 06/12/20 02:17 DC Fentanyl Citrate (Sublimaze) 50 mcg STAT STAT IV 06/12/20 02:17 06/12/20 02:19 DC 06/12/20 02:23 Promethazine HCl (Phenergan) 25 mg STAT STAT IV 06/12/20 02:17 06/12/20 02:19 DC 06/12/20 02:23 Sodium Chloride 1,000 ml @ 1,200 mls/hr Q50M STAT IV 06/12/20 02:17 06/12/20 03:06 DC 06/12/20 02:23 Sodium Chloride 1,000 ml @ 150 mls/hr OT ONCE IV 06/12/20 02:30 06/12/20 09:09 DC 06/12/20 02:45 Promethazine HCl (Phenergan) 25 mg Q6H PRN IV NAUSEA / VOMITING 06/12/20 02:30 07/12/20 02:29 Fentanyl Citrate (Sublimaze) 50 mcg Q4H PRN IV pain 06/12/20 02:30 07/12/20 02:29 06/12/20 08:26 Ondansetron HCl (Zofran) 4 mg Q4H PRN IV NAUSEA / VOMITING 06/12/20 03:30 07/12/20 03:29 06/12/20 11:06 Ondansetron HCl (Zofran) 4 mg Q4H PRN IV NAUSEA / VOMITING 06/12/20 03:30 07/12/20 03:29 Promethazine HCl (Phenergan) 25 mg Q6H PRN IV NAUSEA / VOMITING 06/12/20 03:30 07/12/20 03:29 Potassium Chloride/Sodium Chloride 1,000 ml @ 100 mls/hr Q10H IV 06/12/20 03:30 07/12/20 03:29 06/12/20 04:49 Course Sepsis Screening Results: Posi: NEGATIVE Sepsis Qualifier/Stage: NO DEFINITE RISK Duration or Total Time Spent w: 30 min Vitals & review Data Vital Sign - Last 24 Hours 06/11/20 06/11/20 06/11/20 06/12/20 23:21 23:21 23:21 03:45 Temp 98.2 98.2 98.2 98.7 Pulse 71 71 71 98 Resp 18 18 18 18 B/P (MAP) 103/62 (76) 162/94 (116) Pulse Ox 98 98 94 O2 Delivery Room Air 06/12/20 06/12/20 06/12/20 06/12/20 03:45 03:47 07:15 11:30 Temp 98.9 98.3 Pulse 78 86 Resp 18 18 B/P (MAP) 153/75 (101) 131/87 (102) Pulse Ox 95 98 O2 Delivery Room Air Room Air Nasal [place] Nasal [place]ula O2 Flow Rate 2.00 2.00 Intake and Output 06/12/20 07:00 Intake Total 0 ml Output Total 0 ml Balance 0 ml Laboratory Tests Test 06/11/20 23:20 06/12/20 03:15 White Blood Count 9.3 10^3/uL Red Blood Count 5.18 10^6/uL Hemoglobin 15.9 g/dL Hematocrit 47.1 % Mean Corpuscular Volume 90.9 fL Mean Corpuscular Hemoglobin 30.7 pg Mean Corpuscular Hemoglobin Concent 33.8 g/dL Red Cell Distribution Width 11.9 % Platelet Count 282 10^3/uL Mean Platelet Volume 10.7 fL Neutrophils (%) (Auto) 72.0 % Lymphocytes (%) (Auto) 20.5 % Monocytes (%) (Auto) 6.7 % Neutrophils # (Auto) 6.7 10^3/uL Lymphocytes # (Auto) 1.90 10^3/uL1 Monocytes # (Auto) 0.6 10^3/uL Absolute Immature Granulocyte (auto 0 10^3 u/L Absolute Eosinophils (auto) 0.1 10^3/uL Immature Granulocytes % 0.00 % Eosinophils % 0.5 % Basophils % 0.3 % Basophils # 0.0 10^3/uL Prothrombin Time 10.8 SEC Prothrombin Time INR (Non-Therap) 1.1 Activated Partial Thromboplast Time 27.5 SEC Sodium Level 138 mmol/L Potassium Level 3.6 mmol/L Chloride Level 102.0 mmol/L Carbon Dioxide Level 23.7 mmol/L Anion Gap 15.9 Blood Urea Nitrogen 16 mg/dL Creatinine 0.93 mg/dL Estimated GFR () 76.0 Est GFR (CKD-EPI)(Non-Afr Haitian) 62.8 BUN/Creatinine Ratio 17.0 Glucose Level 160 mg/dL Calcium Level 9.8 mg/dL Total Bilirubin 0.7 mg/dL Aspartate Amino Transf (AST/SGOT) 46 U/L Alanine Aminotransferase (ALT/SGPT) 77 U/L Alkaline Phosphatase 117 U/L Total Protein 8.0 g/dL Albumin 3.9 g/dL Globulin 4.1 Albumin/Globulin Ratio 0.951 Amylase Level 76 U/L Lipase 109 U/L Urine Collection Type CCMS Urine Color YELLOW Urine Appearance CLEAR Urine Bilirubin NEGATIVE MG/DL Urine Ketones NEGATIVE Urine Specific [place] 1.015 Urine pH 7.5 Urine Protein NEGATIVE Urine Urobilinogen 1.0 Urine Nitrate NEGATIVE Urine Leukocyte Esterase NEGATIVE Urine Blood NEGATIVE Urine Glucose NEGATIVE Current Medications Medications (Trade) Dose Ordered Sig/Mandie PRN Reason Start Time Stop Time Status Last Admin Fentanyl Citrate (Sublimaze) 50 mcg Q4H PRN pain 06/12/20 02:30 07/12/20 02:29 06/12/20 08:26 Ondansetron HCl (Zofran) 4 mg Q4H PRN NAUSEA / VOMITING 06/12/20 03:30 07/12/20 03:29 06/12/20 11:06 Ondansetron HCl (Zofran) 4 mg Q4H PRN NAUSEA / VOMITING 06/12/20 03:30 07/12/20 03:29 Potassium Chloride/Sodium Chloride 1,000 ml @ 100 mls/hr Q10H 06/12/20 03:30 07/12/20 03:29 06/12/20 04:49 Promethazine HCl (Phenergan) 25 mg Q6H PRN NAUSEA / VOMITING 06/12/20 02:30 07/12/20 02:29 Promethazine HCl (Phenergan) 25 mg Q6H PRN NAUSEA / VOMITING 06/12/20 03:30 07/12/20 03:29 LEVEL 1 SEPSIS INFECTION CRITE: Abdominal Pain LEVEL 2-SIRS (LIST ALL THAT AP: None/Not assessed Cardiovascular Evidence: Not Assessed or None Hematologic Evidence: None/Not assessed Hepatic Evidence: None/Not assessed Metabolic Evidence: None/Not assessed Neurological Evidence: None/Not assessed Respiratory Evidence: None/Not assessed Renal Evidence: None/Not assessed O2 Sat by Pulse Oximetry: 95 Respiratory End-tidal CO2: 133 Oxygen Flow Rate: 2.00 Assessment/Plan Assessment/Plan Assessment/Plan 1. Small bowel obstruction with parastomal hernia. Abdominal pain seems to be better with NG-tube pain medication. She is afebrile and the abdomen is nondistended. repeat abdomen x-ray With the finding of Mild gaseous distention of loops of bowel in the left abdomen, question mild ileus. No perforation is seen.Patient is still n.p.o. She is passing plenty of gas. Seen with Surgeon who agrees to try advancement of diet beyond full liquids to mechanical soft pending tolerance. Bowel status with contrast shows Oral contrast in the stomach. [id number] distention of small bowel loops. NG tube clamped off. Plan Advance diet as tolerated with small meals Will be candidate for stoma revision in the near term when more stable. May need to be an open procedure and will require comprehensive bowel prep 2. History of stage III colon cancer with resection terminal colostomy. Patient has a recent endoscopy done at [facility] for follow-up with the finding of no evidence of recurrence of the cancer. Patient has been admitted twice for the same symptoms of small bowel obstruction and perhaps he may need a referral to surgeon for correction of the parastomal hernia 3. Prediabetes Monitor blood sugars 4) HTN- needs improved BP control Plan 1. Small bowel obstruction with parastomal hernia. Abdominal pain seems to be better with pain medication. She is afebrile and the abdomen is nondistended. We will repeat the abdomen x-ray With the finding of Mild gaseous distention of loops of bowel in the left abdomen, question mild ileus. No perforation is seen.Patient is still n.p.o. She is passing stool through the colostomy. Because of the findings on the x-ray and the physical exam I consider this patient should be n.p.o. until we had a small bowel series. If shows obstruction will discuss with surgeon. Bowel status with contrast shows Oral contrast in the stomach. [id number] distention of small bowel loops. Correlate for obstruction.Patient was evaluated by surgeon who considered the patient to have the nasogastric tube placed for decompression.Nasogastric tube was placed and x-ray shows evidence of NGT in the stomach. After NGT was placed to LIS, the patient had about 500 mL of greenish material output. Plan Continue IV fluid N.p.o. Nasogastric tube to LIS Surgeon consult was done overnight. RAMÍREZ Garcia 2. History of stage III colon cancer with resection terminal colostomy. Patient has a recent endoscopy done at [facility] for follow-up with the finding of no evidence of recurrence of the cancer. Patient has been admitted twice for the same symptoms of small bowel obstruction and perhaps he may need a referral to surgeon for correction of the parastomal hernia 3. Prediabetes Monitor blood sugars DELAPLANE,STEVE R MD Jun 15, 2020 13:29
--- NOTE | 2020-06-15 14:42 | NUR ---
NG TUBE REMOVED.
--- NOTE | 2020-06-15 16:29 | PRM.PN ---
Progress Note Subjective Physician Notes: Only complaining of NGT, Having ostomy output, no n/v Objective Review IO, Exams,& Results Problems Acute/Active Problems: (1) Abdominal pain (2) Intractable nausea and vomiting (3) Small bowel obstruction Vital Signs Date Time Temp Pulse Resp B/P (MAP) Pulse Ox O2 Delivery O2 Flow Rate FiO2 06/15/20 14:55 Room Air 06/15/20 08:28 99.2 85 18 163/93 (116) 06/15/20 05:56 95 06/14/20 20:20 2.00 28 Intake and Output 06/15/20 07:00 Intake Total 0 ml Balance 0 ml Intake Oral 0 ml # Voids 2 Laboratory Tests Test 06/14/20 06:09 06/15/20 05:03 White Blood Count 4.5 10^3/uL 6.8 10^3/uL Red Blood Count 4.48 10^6/uL 4.31 10^6/uL Hemoglobin 13.7 g/dL 13.4 g/dL Hematocrit 41.9 % 40.9 % Mean Corpuscular Volume 93.5 fL 94.9 fL Mean Corpuscular Hemoglobin 30.6 pg 31.1 pg Mean Corpuscular Hemoglobin Concent 32.7 g/dL 32.8 g/dL Red Cell Distribution Width 12.2 % 12.1 % Platelet Count 262 10^3/uL 246 10^3/uL Mean Platelet Volume 9.6 fL 9.6 fL Neutrophils (%) (Auto) 64.8 % 69.4 % Lymphocytes (%) (Auto) 20.4 % 20.3 % Monocytes (%) (Auto) 14.6 % 9.2 % Neutrophils # (Auto) 2.9 10^3/uL 4.7 10^3/uL Lymphocytes # (Auto) 0.91 10^3/uL1 1.37 10^3/uL1 Monocytes # (Auto) 0.7 10^3/uL 0.6 10^3/uL Absolute Immature Granulocyte (auto 0 10^3 u/L 0.03 10^3 u/L Absolute Eosinophils (auto) 0.0 10^3/uL 0.0 10^3/uL Immature Granulocytes % 0.00 % 0.40 % Eosinophils % 0.2 % 0.3 % Basophils % 0.0 % 0.4 % Basophils # 0.0 10^3/uL 0.0 10^3/uL Sodium Level 146 mmol/L 143 mmol/L Potassium Level 4.4 mmol/L 4.1 mmol/L Chloride Level 111.0 mmol/L 107.0 mmol/L Carbon Dioxide Level 27.7 mmol/L 25.0 mmol/L Anion Gap 11.7 15.1 Blood Urea Nitrogen 34 mg/dL 25 mg/dL Creatinine 0.84 mg/dL 0.68 mg/dL Estimated GFR () 85.5 109.1 Est GFR (CKD-EPI)(Non-Afr Malaysian) 70.7 90.2 BUN/Creatinine Ratio 40.0 36.0 Glucose Level 136 mg/dL 110 mg/dL Calcium Level 9.1 mg/dL 8.1 mg/dL Total Bilirubin 0.5 mg/dL 0.5 mg/dL Aspartate Amino Transf (AST/SGOT) 29 U/L 26 U/L Alanine Aminotransferase (ALT/SGPT) 56 U/L 49 U/L Alkaline Phosphatase 84 U/L 80 U/L Total Protein 6.4 g/dL 6.1 g/dL Albumin 3.2 g/dL 3.1 g/dL Globulin 3.2 3.0 Albumin/Globulin Ratio 1.000 1.033 Current Medications Medications (Trade) Dose Ordered Sig/Mandie PRN Reason Start Time Stop Time Status Last Admin Hydromorphone HCl (Dilaudid) 0.5 mg Q4H PRN PAIN 4-6 06/12/20 19:30 07/12/20 19:29 06/15/20 10:46 Hydromorphone HCl (Dilaudid) 1 mg Q4H PRN PAIN 7 - 10 06/12/20 19:30 07/12/20 19:29 06/14/20 16:37 Orders - ADIA GARCIA MD Ngt To Lis (06/14/20 12:47) Clear Liquid Diet (06/14/20 Lunch) Miscellaneous (06/15/20 13:43) Full Liquid Diet (06/15/20 Dinner) Heart: Regular rate, Normal S1, Normal S2, No murmurs Abdomen: Soft, No tenderness, Other (improving bowel sounds) Lungs: Clear to auscultation, Normal air movement Skin: No rashes Assessment & Plan: Assessment Parastomal hernia with ileus Plan 1. pull NGT 2. ADV diet to fulls and regular tomorrow 3. Home soon ADIA GARCIA MD Jun 15, 2020 16:29
[2020-06-15 17:34] VITALS: BP 151/92
[2020-06-15 19:39] VITALS: BP 129/55
[2020-06-16 04:39] VITALS: BP 124/51
[2020-06-16 08:00] VITALS: BP 132/64
[2020-06-16] MEDS: NS 1000ML/KCL 20MEQ 1,000 ML IV SCH ×2 (08:24→17:34)
[2020-06-16] MEDS: DILAUDID IV PRN ×2 (10:20→17:00)
[2020-06-16] MEDS: ZOFRAN IV PRN (10:22)
--- NOTE | 2020-06-16 10:29 | PRM.PN ---
Progress Note Subjective Physician Notes: doing well, no N/V, sole reg diet Objective Review IO, Exams,& Results Problems Acute/Active Problems: (1) Abdominal pain (2) Intractable nausea and vomiting (3) Small bowel obstruction Vital Signs Date Time Temp Pulse Resp B/P (MAP) Pulse Ox O2 Delivery O2 Flow Rate FiO2 06/16/20 08:00 98.2 69 20 132/64 (86) 99 06/16/20 01:44 Room Air 06/15/20 20:20 2.00 28 Intake and Output 06/16/20 07:00 Output Total 400 ml Balance -400 ml Output Urine Total 300 ml Stool Total 100 ml # Voids 1 Laboratory Tests Test 06/15/20 05:03 White Blood Count 6.8 10^3/uL Red Blood Count 4.31 10^6/uL Hemoglobin 13.4 g/dL Hematocrit 40.9 % Mean Corpuscular Volume 94.9 fL Mean Corpuscular Hemoglobin 31.1 pg Mean Corpuscular Hemoglobin Concent 32.8 g/dL Red Cell Distribution Width 12.1 % Platelet Count 246 10^3/uL Mean Platelet Volume 9.6 fL Neutrophils (%) (Auto) 69.4 % Lymphocytes (%) (Auto) 20.3 % Monocytes (%) (Auto) 9.2 % Neutrophils # (Auto) 4.7 10^3/uL Lymphocytes # (Auto) 1.37 10^3/uL1 Monocytes # (Auto) 0.6 10^3/uL Absolute Immature Granulocyte (auto 0.03 10^3 u/L Absolute Eosinophils (auto) 0.0 10^3/uL Immature Granulocytes % 0.40 % Eosinophils % 0.3 % Basophils % 0.4 % Basophils # 0.0 10^3/uL Sodium Level 143 mmol/L Potassium Level 4.1 mmol/L Chloride Level 107.0 mmol/L Carbon Dioxide Level 25.0 mmol/L Anion Gap 15.1 Blood Urea Nitrogen 25 mg/dL Creatinine 0.68 mg/dL Estimated GFR () 109.1 Est GFR (CKD-EPI)(Non-Afr Canadian) 90.2 BUN/Creatinine Ratio 36.0 Glucose Level 110 mg/dL Calcium Level 8.1 mg/dL Total Bilirubin 0.5 mg/dL Aspartate Amino Transf (AST/SGOT) 26 U/L Alanine Aminotransferase (ALT/SGPT) 49 U/L Alkaline Phosphatase 80 U/L Total Protein 6.1 g/dL Albumin 3.1 g/dL Globulin 3.0 Albumin/Globulin Ratio 1.033 Orders - ADIA GARCIA MD Ngt To Lis (06/14/20 12:47) Clear Liquid Diet (06/14/20 Lunch) Miscellaneous (06/15/20 13:43) Full Liquid Diet (06/15/20 Dinner) Cardiac Diet (06/16/20 Breakfast) Heart: Regular rate, Normal S1, Normal S2, No murmurs Abdomen: Soft, Other (BS +, min TTP RUQ) Lungs: Clear to auscultation, Normal air movement Skin: No rashes Assessment & Plan: Assessment 54 yo F with parastomal hernia Plan 1. ok from surgery standpoint for discharge home when ok with medicine ADIA GARCIA MD Jun 16, 2020 10:29
[2020-06-16 12:30] VITALS: BP 127/64
[2020-06-16 17:00] VITALS: BP 122/71
--- NOTE | 2020-06-16 18:32 | PRM.PN ---
Subjective Subjective Date: Jun 16, 2020 Time: 08:30 Subjective Patient is reporting reasonably good tolerance of her breakfast this morning. She has only eating very small amounts of with already minimal portions. She has having some epigastric and lower abdominal pain which is relatively mild with eating. She does continue to pass a little bit of stool in her colostomy bag Patient History: FHx: prostate cancer VTE VTE Risk Score VTE Risk: Score 0-1 = Low Risk (Aggressive mobilization; early ambulation; no VTE prophylaxis required) Score 2: Moderate Risk (Intermittent/Pneumatic Compression Device OR Lovenox/Heparin/Coumadin) Score 3-4: High Risk (Intermittent/Pneumatic Compression Device AND Lovenox/Heparin/Coumadin) Score > or =5: Highest Risk (Intermittent/Pneumatic Compression Device AND Lovenox/Heparin/Coumadin) Review of Systems Constitutional: Malaise Gastrointestinal: Abdominal Pain Allergies: Coded Allergies: No Known Allergies (Unverified , 06/12/20) Scheduled Hydrochlorothiazide (Hydrochlorothiazide), 1 TAB PO DAILY, (Reported) Lisinopril (Lisinopril), 1 TAB PO DAILY, (Reported) Scheduled PRN [Acetaminophen], 500 MG PO Q6H PRN for PAIN Objective Vitals and I/O Vital Sign - Last 24 Hours 06/15/20 06/15/20 06/16/20 06/16/20 19:39 20:20 00:51 01:44 Temp 99.1 99.0 Pulse 84 75 74 Resp 18 18 18 B/P (MAP) 129/55 (79) Pulse Ox 95 99 O2 Delivery Nasal Cannula Room Air O2 Flow Rate 2.00 FiO2 28 06/16/20 06/16/20 06/16/20 06/16/20 04:39 08:00 08:00 12:30 Temp 98.5 98.2 98.4 Pulse 73 69 64 Resp 20 20 18 B/P (MAP) 124/51 (75) 132/64 (86) 127/64 (85) Pulse Ox 97 99 98 O2 Delivery Room Air 06/16/20 06/16/20 13:46 17:00 Temp 98.8 Pulse 64 68 Resp 18 18 B/P (MAP) 122/71 (88) Pulse Ox 95 98 O2 Delivery Nasal Cannula O2 Flow Rate 2.00 FiO2 28 Intake and Output 06/16/20 07:00 Output Total 400 ml Balance -400 ml General: Alert, Oriented X3, Cooperative, mild distress HEENT: PERRLA, EOMI Neck: No LAD Lungs: Clear to auscultation, Normal air movement Heart: Regular rate, Normal S1 Abdomen: Soft, Other (Some mild tenderness / guarding to gentle palpation to the mid abdomen) Extremities: No clubbing, No cyanosis, No edema, Normal pulses Skin: No rashes, No significant lesion Neuro: Normal speech, Normal tone, Cranial nerves 3-12 NL All Results(Lab/Rad) Laboratory Tests Test 06/16/20 12:19 Bedside Glucose 110 Current Medications Medications (Trade) Dose Ordered Sig/Mandie Route PRN Reason Start Time Stop Time Status Last Admin Dose Admin Ondansetron HCl (Zofran) 4 mg STAT STAT IV 06/11/20 23:25 06/11/20 23:27 DC 06/11/20 23:43 Sodium Chloride 1,000 ml @ 1,200 mls/hr Q50M STAT IV 06/11/20 23:25 06/12/20 00:14 DC 06/11/20 23:43 Fentanyl Citrate (Sublimaze) 50 mcg STAT STAT IV 06/11/20 23:29 06/12/20 05:23 DC 06/11/20 23:43 Sodium Chloride 1,000 ml @ ud STK-MED ONCE .ROUTE 06/11/20 23:28 06/11/20 23:30 DC Ondansetron HCl (Zofran) 4 mg STK-MED ONCE .ROUTE 06/11/20 23:29 06/11/20 23:31 DC Promethazine HCl (Phenergan) 25 mg STK-MED ONCE .ROUTE 06/12/20 00:13 06/12/20 00:15 DC Promethazine HCl (Phenergan) 25 mg STAT STAT IV 06/12/20 00:19 06/12/20 00:20 DC 06/12/20 00:20 Sodium Chloride 1,000 ml @ ud STK-MED ONCE .ROUTE 06/12/20 02:15 06/12/20 02:17 DC Promethazine HCl (Phenergan) 25 mg STK-MED ONCE .ROUTE 06/12/20 02:15 06/12/20 02:17 DC Fentanyl Citrate (Sublimaze) 50 mcg STAT STAT IV 06/12/20 02:17 06/12/20 02:19 DC 06/12/20 02:23 Promethazine HCl (Phenergan) 25 mg STAT STAT IV 06/12/20 02:17 06/12/20 02:19 DC 06/12/20 02:23 Sodium Chloride 1,000 ml @ 1,200 mls/hr Q50M STAT IV 06/12/20 02:17 06/12/20 03:06 DC 06/12/20 02:23 Sodium Chloride 1,000 ml @ 150 mls/hr OT ONCE IV 06/12/20 02:30 06/12/20 09:09 DC 06/12/20 02:45 Promethazine HCl (Phenergan) 25 mg Q6H PRN IV NAUSEA / VOMITING 06/12/20 02:30 07/12/20 02:29 Fentanyl Citrate (Sublimaze) 50 mcg Q4H PRN IV pain 06/12/20 02:30 06/12/20 18:34 DC 06/12/20 16:08 Ondansetron HCl (Zofran) 4 mg Q4H PRN IV NAUSEA / VOMITING 06/12/20 03:30 07/12/20 03:29 06/16/20 10:22 Ondansetron HCl (Zofran) 4 mg Q4H PRN IV NAUSEA / VOMITING 06/12/20 03:30 06/12/20 18:36 DC Promethazine HCl (Phenergan) 25 mg Q6H PRN IV NAUSEA / VOMITING 06/12/20 03:30 06/12/20 18:36 DC Potassium Chloride/Sodium Chloride 1,000 ml @ 100 mls/hr Q10H IV 06/12/20 03:30 07/12/20 03:29 06/16/20 17:34 Hydromorphone HCl (Dilaudid) 0.5 mg OT ONCE IV 06/12/20 19:00 06/12/20 20:33 DC 06/12/20 18:40 Hydromorphone HCl (Dilaudid) 2 mg STK-MED ONCE .ROUTE 06/12/20 18:33 06/12/20 18:35 DC Hydromorphone HCl (Dilaudid) 0.5 mg Q4H PRN IV PAIN 4-6 06/12/20 19:30 07/12/20 19:29 06/15/20 10:46 Hydromorphone HCl (Dilaudid) 1 mg Q4H PRN IV PAIN 7 - 10 06/12/20 19:30 07/12/20 19:29 06/16/20 17:00 Ketorolac Tromethamine (Toradol) 30 mg Q8HR IV 06/12/20 22:00 06/14/20 14:01 DC 06/14/20 09:42 Course Vitals & review Data Vital Sign - Last 24 Hours 06/15/20 06/15/20 06/16/20 06/16/20 19:39 20:20 00:51 01:44 Temp 99.1 99.0 Pulse 84 75 74 Resp 18 18 18 B/P (MAP) 129/55 (79) Pulse Ox 95 99 O2 Delivery Nasal Cannula Room Air O2 Flow Rate 2.00 FiO2 28 06/16/20 06/16/20 06/16/20 06/16/20 04:39 08:00 08:00 12:30 Temp 98.5 98.2 98.4 Pulse 73 69 64 Resp 20 20 18 B/P (MAP) 124/51 (75) 132/64 (86) 127/64 (85) Pulse Ox 97 99 98 O2 Delivery Room Air 06/16/20 06/16/20 13:46 17:00 Temp 98.8 Pulse 64 68 Resp 18 18 B/P (MAP) 122/71 (88) Pulse Ox 95 98 O2 Delivery Nasal Cannula O2 Flow Rate 2.00 FiO2 28 Intake and Output 06/16/20 07:00 Output Total 400 ml Balance -400 ml Laboratory Tests Test 06/15/20 05:03 06/16/20 12:19 White Blood Count 6.8 10^3/uL Red Blood Count 4.31 10^6/uL Hemoglobin 13.4 g/dL Hematocrit 40.9 % Mean Corpuscular Volume 94.9 fL Mean Corpuscular Hemoglobin 31.1 pg Mean Corpuscular Hemoglobin Concent 32.8 g/dL Red Cell Distribution Width 12.1 % Platelet Count 246 10^3/uL Mean Platelet Volume 9.6 fL Neutrophils (%) (Auto) 69.4 % Lymphocytes (%) (Auto) 20.3 % Monocytes (%) (Auto) 9.2 % Neutrophils # (Auto) 4.7 10^3/uL Lymphocytes # (Auto) 1.37 10^3/uL1 Monocytes # (Auto) 0.6 10^3/uL Absolute Immature Granulocyte (auto 0.03 10^3 u/L Absolute Eosinophils (auto) 0.0 10^3/uL Immature Granulocytes % 0.40 % Eosinophils % 0.3 % Basophils % 0.4 % Basophils # 0.0 10^3/uL Sodium Level 143 mmol/L Potassium Level 4.1 mmol/L Chloride Level 107.0 mmol/L Carbon Dioxide Level 25.0 mmol/L Anion Gap 15.1 Blood Urea Nitrogen 25 mg/dL Creatinine 0.68 mg/dL Estimated GFR () 109.1 Est GFR (CKD-EPI)(Non-Afr [place]) 90.2 BUN/Creatinine Ratio 36.0 Glucose Level 110 mg/dL Calcium Level 8.1 mg/dL Total Bilirubin 0.5 mg/dL Aspartate Amino Transf (AST/SGOT) 26 U/L Alanine Aminotransferase (ALT/SGPT) 49 U/L Alkaline Phosphatase 80 U/L Total Protein 6.1 g/dL Albumin 3.1 g/dL Globulin 3.0 Albumin/Globulin Ratio 1.033 Bedside Glucose 110 Assessment/Plan Assessment/Plan Assessment/Plan Ostomy herniation with anterior displacement Nausea and vomiting - minimal since NG-tube removed Small bowel dilatation HTN- improved with decreased pain and anxiety PLAN: Continue advanced diet and monitor for tolerance tonight If she is tolerating regular diet in am she will be eligible for d/c STEVE CARDOZO MD Jun 16, 2020 18:32
[2020-06-16 20:21] VITALS: BP 99/54
[2020-06-17] MEDS: NS 1000ML/KCL 20MEQ 1,000 ML IV SCH ×2 (03:30→13:30)
[2020-06-17 04:36] VITALS: BP 95/52
[2020-06-17 05:26] LABS: CALCIUM 8.3 mg/dL (8.4-10.5)
[2020-06-17 08:00] VITALS: BP 126/73
[2020-06-17] MEDS: DILAUDID IV PRN (08:10)
[2020-06-17] MEDS: ZOFRAN IV PRN (08:20)
[2020-06-17 12:08] VITALS: BP 126/76
[2020-06-17 13:25] LABS: ABG PCO2 40.8 mmHg (35.0-45.0); ABG PH 7.416 (7.350-7.450); HCO3act 25.6 mmol/L (22.0-26.0); pO2 82.1 mmHg (80.0-100.0)
[2020-06-17] MEDS ORDERED: VENTOLIN HFA IH ONE (14:37)
[2020-06-17] MEDS: VENTOLIN HFA IH SCH ×2 (14:50→21:00)
[2020-06-17] MEDS ORDERED: VENTOLIN IH SCH (15:00)
--- NOTE | 2020-06-17 15:26 | PRM.PN ---
Subjective Subjective Date: Jun 17, 2020 Time: 13:30 Subjective Patient is reporting some mild discomfort with eating. She is having a burning sensation up from her chest with some throat discomfort and high-pitched upper airway sounds. Complaints of profound weakness and difficulty taking a deep breath. She has only eating very small amounts of with already minimal portions. . She does continue to pass a little bit of stool in her colostomy bag Patient History: FHx: prostate cancer VTE VTE Risk Total Score: 2 VTE Risk Score VTE Risk: Score 0-1 = Low Risk (Aggressive mobilization; early ambulation; no VTE prophylaxis required) Score 2: Moderate Risk (Intermittent/Pneumatic Compression Device OR Lovenox/Heparin/Coumadin) Score 3-4: High Risk (Intermittent/Pneumatic Compression Device AND Lovenox/Heparin/Coumadin) Score > or =5: Highest Risk (Intermittent/Pneumatic Compression Device AND Lovenox/Heparin/Coumadin) Antico:Hep/LMWH/Coum/Xarelto: No Mechanical device ordered: No Reasons not ordering prophylax: Medical Contraindication Review of Systems Constitutional: Weakness, Malaise Respiratory: Shortness of breath, SOB with excertion, Wheezing, Pleuritic Pain, Wheezing Cardiovascular: Chest Pain Gastrointestinal: Nausea, Abdominal Pain Neurological: Weakness Allergies: Coded Allergies: No Known Allergies (Unverified , 06/12/20) Scheduled Hydrochlorothiazide (Hydrochlorothiazide), 1 TAB PO DAILY, (Reported) Lisinopril (Lisinopril), 1 TAB PO DAILY, (Reported) Scheduled PRN [Acetaminophen], 500 MG PO Q6H PRN for PAIN Objective Vitals and I/O Vital Sign - Last 24 Hours 06/16/20 06/16/20 06/16/20 06/16/20 17:00 20:21 20:56 22:18 Temp 98.8 99.9 Pulse 68 85 85 Resp 18 18 18 B/P (MAP) 122/71 (88) 99/54 (69) Pulse Ox 98 95 95 O2 Delivery Nasal Cannula Room Air O2 Flow Rate 2.00 FiO2 28 06/17/20 06/17/20 06/17/20 06/17/20 03:45 04:36 08:00 08:00 Temp 99.0 98.0 Pulse 75 68 Resp 18 18 18 B/P (MAP) 95/52 (66) 126/73 (90) Pulse Ox 95 95 99 O2 Delivery Room Air 06/17/20 06/17/20 11:24 12:08 Temp 98.0 Pulse 68 72 Resp 18 18 B/P (MAP) 126/76 (93) Pulse Ox 99 98 O2 Delivery Room Air FiO2 21 Intake and Output 06/17/20 07:00 Intake Total 500 ml Output Total 700 ml Balance -200 ml General: Alert, Oriented X3, Cooperative, mild distress HEENT: PERRLA, EOMI Neck: No LAD Lungs: Clear to auscultation, Normal air movement Heart: Regular rate, Normal S1 Abdomen: Soft, Other Extremities: No clubbing, No cyanosis, No edema, Normal pulses Skin: No rashes, No significant lesion Neuro: Normal speech, Normal tone, Cranial nerves 3-12 NL Psych/Mental Status: Mental status NL, Mood NL All Results(Lab/Rad) Laboratory Tests Test 06/16/20 12:19 Bedside Glucose 110 Current Medications Medications (Trade) Dose Ordered Sig/Mandie Route PRN Reason Start Time Stop Time Status Last Admin Dose Admin Ondansetron HCl (Zofran) 4 mg STAT STAT IV 06/11/20 23:25 06/11/20 23:27 DC 06/11/20 23:43 Sodium Chloride 1,000 ml @ 1,200 mls/hr Q50M STAT IV 06/11/20 23:25 06/12/20 00:14 DC 06/11/20 23:43 Fentanyl Citrate (Sublimaze) 50 mcg STAT STAT IV 06/11/20 23:29 06/12/20 05:23 DC 06/11/20 23:43 Sodium Chloride 1,000 ml @ ud STK-MED ONCE .ROUTE 06/11/20 23:28 06/11/20 23:30 DC Ondansetron HCl (Zofran) 4 mg STK-MED ONCE .ROUTE 06/11/20 23:29 06/11/20 23:31 DC Promethazine HCl (Phenergan) 25 mg STK-MED ONCE .ROUTE 06/12/20 00:13 06/12/20 00:15 DC Promethazine HCl (Phenergan) 25 mg STAT STAT IV 06/12/20 00:19 06/12/20 00:20 DC 06/12/20 00:20 Sodium Chloride 1,000 ml @ ud STK-MED ONCE .ROUTE 06/12/20 02:15 06/12/20 02:17 DC Promethazine HCl (Phenergan) 25 mg STK-MED ONCE .ROUTE 06/12/20 02:15 06/12/20 02:17 DC Fentanyl Citrate (Sublimaze) 50 mcg STAT STAT IV 06/12/20 02:17 06/12/20 02:19 DC 06/12/20 02:23 Promethazine HCl (Phenergan) 25 mg STAT STAT IV 06/12/20 02:17 06/12/20 02:19 DC 06/12/20 02:23 Sodium Chloride 1,000 ml @ 1,200 mls/hr Q50M STAT IV 06/12/20 02:17 06/12/20 03:06 DC 06/12/20 02:23 Sodium Chloride 1,000 ml @ 150 mls/hr OT ONCE IV 06/12/20 02:30 06/12/20 09:09 DC 06/12/20 02:45 Promethazine HCl (Phenergan) 25 mg Q6H PRN IV NAUSEA / VOMITING 06/12/20 02:30 07/12/20 02:29 Fentanyl Citrate (Sublimaze) 50 mcg Q4H PRN IV pain 06/12/20 02:30 06/12/20 18:34 DC 06/12/20 16:08 Ondansetron HCl (Zofran) 4 mg Q4H PRN IV NAUSEA / VOMITING 06/12/20 03:30 07/12/20 03:29 06/16/20 10:22 Ondansetron HCl (Zofran) 4 mg Q4H PRN IV NAUSEA / VOMITING 06/12/20 03:30 06/12/20 18:36 DC Promethazine HCl (Phenergan) 25 mg Q6H PRN IV NAUSEA / VOMITING 06/12/20 03:30 06/12/20 18:36 DC Potassium Chloride/Sodium Chloride 1,000 ml @ 100 mls/hr Q10H IV 06/12/20 03:30 07/12/20 03:29 06/16/20 17:34 Hydromorphone HCl (Dilaudid) 0.5 mg OT ONCE IV 06/12/20 19:00 06/12/20 20:33 DC 11/17/20 18:40 Hydromorphone HCl (Dilaudid) 2 mg STK-MED ONCE .ROUTE 06/12/20 18:33 06/12/20 18:35 DC Hydromorphone HCl (Dilaudid) 0.5 mg Q4H PRN IV PAIN 4-6 06/12/20 19:30 07/12/20 19:29 06/15/20 10:46 Hydromorphone HCl (Dilaudid) 1 mg Q4H PRN IV PAIN 7 - 10 06/12/20 19:30 07/12/20 19:29 06/16/20 17:00 Ketorolac Tromethamine (Toradol) 30 mg Q8HR IV 06/12/20 22:00 06/14/20 14:01 DC 06/14/20 09:42 Course Sepsis Screening Results: Posi: NEGATIVE Sepsis Qualifier/Stage: NO DEFINITE RISK Duration or Total Time Spent w: 30 min Vitals & review Data Vital Sign - Last 24 Hours 06/15/20 06/15/20 06/16/20 06/16/20 19:39 20:20 00:51 01:44 Temp 99.1 99.0 Pulse 84 75 74 Resp 18 18 18 B/P (MAP) 129/55 (79) Pulse Ox 95 99 O2 Delivery Nasal Cannula Room Air O2 Flow Rate 2.00 FiO2 28 06/16/20 06/16/20 06/16/20 06/16/20 04:39 08:00 08:00 12:30 Temp 98.5 98.2 98.4 Pulse 73 69 64 Resp 20 18 B/P (MAP) 124/51 (75) 132/64 (86) 127/64 (85) Pulse Ox 97 99 98 O2 Delivery Room Air 06/16/20 06/16/20 13:46 17:00 Temp 98.8 Pulse 64 68 Resp 18 18 B/P (MAP) 122/71 (88) Pulse Ox 95 98 O2 Delivery Nasal Cannula O2 Flow Rate 2.00 FiO2 28 Intake and Output 06/16/20 07:00 Output Total 400 ml Balance -400 ml Laboratory Tests Test 06/15/20 05:03 06/16/20 12:19 White Blood Count 6.8 10^3/uL Red Blood Count 4.31 10^6/uL Hemoglobin 13.4 g/dL Hematocrit 40.9 % Mean Corpuscular Volume 94.9 fL Mean Corpuscular Hemoglobin 31.1 pg Mean Corpuscular Hemoglobin Concent 32.8 g/dL Red Cell Distribution Width 12.1 % Platelet Count 246 10^3/uL Mean Platelet Volume 9.6 fL Neutrophils (%) (Auto) 69.4 % Lymphocytes (%) (Auto) 20.3 % Monocytes (%) (Auto) 9.2 % Neutrophils # (Auto) 4.7 10^3/uL Lymphocytes # (Auto) 1.37 10^3/uL1 Monocytes # (Auto) 0.6 10^3/uL Absolute Immature Granulocyte (auto 0.03 10^3 u/L Absolute Eosinophils (auto) 0.0 10^3/uL Immature Granulocytes % 0.40 % Eosinophils % 0.3 % Basophils % 0.4 % Basophils # 0.0 10^3/uL Sodium Level 143 mmol/L Potassium Level 4.1 mmol/L Chloride Level 107.0 mmol/L Carbon Dioxide Level 25.0 mmol/L Anion Gap 15.1 Blood Urea Nitrogen 25 mg/dL Creatinine 0.68 mg/dL Estimated GFR () 109.1 Est GFR (CKD-EPI)(Non-Afr [place]) 90.2 BUN/Creatinine Ratio 36.0 Glucose Level 110 mg/dL Calcium Level 8.1 mg/dL Total Bilirubin 0.5 mg/dL Aspartate Amino Transf (AST/SGOT) 26 U/L Alanine Aminotransferase (ALT/SGPT) 49 U/L Alkaline Phosphatase 80 U/L Total Protein 6.1 g/dL Albumin 3.1 g/dL Globulin 3.0 Albumin/Globulin Ratio 1.033 Bedside Glucose 110 LEVEL 1 SEPSIS INFECTION CRITE: Abdominal Pain LEVEL 2-SIRS (LIST ALL THAT AP: None/Not assessed Cardiovascular Evidence: Not Assessed or None Hematologic Evidence: None/Not assessed Hepatic Evidence: None/Not assessed Metabolic Evidence: None/Not assessed Neurological Evidence: None/Not assessed Respiratory Evidence: None/Not assessed Renal Evidence: None/Not assessed O2 Sat by Pulse Oximetry: 98 Respiratory End-tidal CO2: 133 Oxygen Flow Rate: 2.00 Assessment/Plan Assessment/Plan Assessment/Plan Ostomy herniation with anterior displacement Nausea and vomiting - minimal since NG-tube removed Small bowel dilatation HTN- improved with decreased pain and anxiety Dyspnea with pleuritic pain on attempted deep inspiration Laryngeal pain Upper airway adventitial sounds Anxiety PLAN: Continue advanced diet and monitor for tolerance tonight Check COVID-19 and BNP along with CXR and ABG Ventolin HFA Carafate and /or Pepcid Plan Ostomy herniation with anterior displacement Nausea and vomiting - minimal since NG-tube removed Small bowel dilatation HTN- improved with decreased pain and anxiety PLAN: Continue advanced diet and monitor for tolerance tonight If she is tolerating regular diet in am she will be eligible for d/c STEVE CARDOZO MD Jun 17, 2020 15:25
[2020-06-17 16:00] VITALS: BP 127/76
[2020-06-17] MEDS: LOVENOX SQ SCH (17:52)
--- NOTE | 2020-06-17 18:58 | DIREP ---
PROCEDURE:CHEST 1 VIEW COMPARISON:[facility], CR, XRAY CHEST SINGLE VW, 06/12/2020, 08:20 PM. INDICATIONS:dyspnea FINDINGS: LUNGS/PLEURA:Improved aeration to the left lung with compared to prior exam. Layering left pleural effusion or infiltrate has markedly improved. Questionable persistent right infrahilar infiltrate versus crowding of vascular shadows. VASCULATURE:Normal. Unremarkable pulmonary vasculature. CARDIAC:Mild cardiomegaly. MEDIASTINUM:Normal. No visible mass or adenopathy. BONES:Normal. No fracture or visible bony lesion. OTHER:Interval removal of nasogastric tube. CONCLUSION: 1. Improved effusion and/or infiltrates in the left lung. 2. Persistent right infrahilar infiltrate versus confluence of vascular shadows. 3. Low lung volumes. Dictated by: Gabriel Plunkett M.D. on 06/17/2020 at 06:55 PM
[2020-06-17 21:00] VITALS: BP 133/64
[2020-06-17] MEDS: PEPCID PO SCH (21:46)
[2020-06-18 00:47] VITALS: BP 120/56
--- NOTE | 2020-06-18 01:35 | NUR ---
Several attempts made for 20 gauge IV insertion for completion of STAT angiogram with no success. Close monitoring of oxygenation/respiratory o2 sats WNL ranging between 97-99% with no respiratory difficulty noted/verbalized. Patient in bed with no apparent distress noted and denies pain at this time. Charge nurse aware of clinical situation with close observation/monitoring in progress. IV solution NS/KCL 20mEq infusing as ordered. Will continue to monitor patient and notify MD with any changes in status/condition.
[2020-06-18] MEDS: NS 1000ML/KCL 20MEQ 1,000 ML IV SCH ×3 (02:05→15:29)
[2020-06-18 05:11] VITALS: BP 124/55
--- NOTE | 2020-06-18 06:54 | NUR ---
Patient remains in stable condition with o2 Sats between 97-99% o2 via NC @ 2L. Patient denies any pain. Hand off given to oncoming nurse regarding angiogram to be completed.
[2020-06-18 07:05] LABS: CALCIUM 8.6 mg/dL (8.4-10.5); CARBON DIOXIDE 29.6 mmol/L (20.0-32)
[2020-06-18 08:12] VITALS: BP 134/75
[2020-06-18] MEDS: VENTOLIN HFA IH SCH ×3 (08:33→20:30)
[2020-06-18] MEDS: PEPCID PO SCH ×2 (08:39→20:26)
[2020-06-18] MEDS: DILAUDID IV PRN ×2 (10:00→15:29)
--- NOTE | 2020-06-18 11:05 | NUR ---
DISCHARGE PLANNING CM VISITED WITH PATIENT AND SPOUSE REGARDING D/C PLAN. PATIENT LIVES AT HOME WITH HER SPOUSE SHE IS VERY IND OF ADLS. HER PCP IS DR ARGUETA AT [facility] IN [place]. SHE DENIES USING DME OR NEEDING DME ON D/C. PATIENT IS ON PRN O2. IF NEEDED ON D/C PATIENT WILL HAVE TO PAY 120.00 [employer] MONTHLY FOR THE RENTAL. CM EDUCATED ON AND PROVIDED A COPY OF SELF PAY PRICES AT [facility]. D/C PLAN IS FOR PATIENT TO D/C BACK HOME WITH HER SPOUSE TO ROUTINE CARE.
--- NOTE | 2020-06-18 12:12 | NUR ---
PT TRANSFERED TO MED SURG ON 3RD FLOOR ROOM 304 BEDSIDE REPORT GIVEN TO NURSE .
[2020-06-18 12:42] VITALS: BP 153/81
[2020-06-18] MEDS: ZOFRAN IV PRN (15:29)
--- NOTE | 2020-06-18 16:02 | DIREP ---
PROCEDURE:CTA CHEST COMPARISON:[facility], CR, XRAY CHEST SINGLE VW, 06/17/2020, 06:04 PM. INDICATIONS:CHEST PAIN TECHNIQUE:Post contrast axial images through the chest with multiplanar MIP/3D reconstructions. FINDINGS: PULMONARY ARTERIES:Patent. LUNGS:Mild atelectasis/infiltrate in the posterior right upper lobe and posterior bilateral lower lobes. CARDIAC:Normal size heart and normal pulmonary vascularity. RV:LV ratio (norm <0.9): Not applicable in the absence of pulmonary embolism. THYROID:Normal. THORACIC AORTA:Normal. MEDIASTINUM:Normal. PLEURA:Small bilateral pleural effusions. BONES:Normal. OTHER:Previous cholecystectomy. CONCLUSION:1. No pulmonary embolism. The aorta is normal. 2. Mild atelectasis/infiltrate in the posterior right upper lobe and posterior bilateral lower lobes. Small bilateral pleural effusions. Dictated by: Sandor Aguilar M.D. on 06/18/2020 at 02:38 PM [place] in [place]
[2020-06-18 16:29] VITALS: BP_SYST 141; BP_SYST 152; BP_DIAS 82; BP_DIAS 83
--- NOTE | 2020-06-18 16:49 | PRM.PN ---
Subjective Subjective Date: Jun 18, 2020 Time: 16:15 Subjective Patient is reporting some ongoing mild discomfort with eating. She is having a burning sensation up from her chest with some throat discomfort and high-pitched upper airway sounds. Review of her history suggests she was ? diagnosed with Barretts esophagus and was to be on chjronic acid suppressive therapy which she seems to sheepishly acknowledge. Her chest CT did not show any evidence of PE but did show some right upper lobe infliltrate along with bilateral lower lobe infiltrates. Overall, most c/w aspiration--she denies any overt symptome. Rapid COVID-19 AG negative, Patient History: FHx: prostate cancer VTE VTE Risk Total Score: 2 VTE Risk Score VTE Risk: Score 0-1 = Low Risk (Aggressive mobilization; early ambulation; no VTE prophylaxis required) Score 2: Moderate Risk (Intermittent/Pneumatic Compression Device OR Lovenox/Heparin/Coumadin) Score 3-4: High Risk (Intermittent/Pneumatic Compression Device AND Lovenox/Heparin/Coumadin) Score > or =5: Highest Risk (Intermittent/Pneumatic Compression Device AND Lovenox/Heparin/Coumadin) Antico:Hep/LMWH/Coum/Xarelto: No Mechanical device ordered: No Reasons not ordering prophylax: Medical Contraindication Review of Systems Constitutional: Weakness, Malaise Respiratory: Shortness of breath, SOB with excertion, Wheezing, Wheezing Cardiovascular: Chest Pain Gastrointestinal: Nausea, Abdominal Pain Neurological: Weakness Allergies: Coded Allergies: No Known Allergies (Unverified , 06/12/20) Scheduled Hydrochlorothiazide (Hydrochlorothiazide), 1 TAB PO DAILY, (Reported) Lisinopril (Lisinopril), 1 TAB PO DAILY, (Reported) Scheduled PRN [Acetaminophen], 500 MG PO Q6H PRN for PAIN Objective Vitals and I/O Vital Sign - Last 24 Hours 06/17/20 06/17/20 06/17/20 06/17/20 16:37 20:15 20:15 21:00 Temp 99.4 Pulse 78 90 90 89 Resp 18 18 18 18 B/P (MAP) 133/64 (87) Pulse Ox 94 98 98 98 O2 Delivery Nasal Cannula Nasal Cannula O2 Flow Rate 2.00 2.00 FiO2 28 28 06/17/20 06/18/20 06/18/20 06/18/20 21:06 00:47 05:11 08:00 Temp 98.6 98.7 Pulse 68 78 Resp 20 20 B/P (MAP) 120/56 (77) 124/55 (78) Pulse Ox 99 100 O2 Delivery Room Air Room Air 06/18/20 06/18/20 06/18/20 06/18/20 08:12 08:31 08:31 12:42 Temp 98.8 98.5 Pulse 79 78 78 79 Resp 20 16 16 18 B/P (MAP) 134/75 (94) 153/81 (105) Pulse Ox 98 92 92 93 O2 Delivery Room Air FiO2 21 06/18/20 15:18 Pulse 79 Resp 18 Pulse Ox 93 Intake and Output 06/18/20 07:00 Intake Total 280 ml Output Total 2200 ml Balance -1920 ml General: Alert, Oriented X3, Cooperative, mild distress HEENT: PERRLA, EOMI Neck: No LAD Lungs: Clear to auscultation, Normal air movement Heart: Regular rate, Normal S1 Abdomen: Soft, Other Extremities: No clubbing, No cyanosis, No edema, Normal pulses Skin: No rashes, No significant lesion Neuro: Normal speech, Normal tone, Cranial nerves 3-12 NL Psych/Mental Status: Mental status NL, Mood NL All Results(Lab/Rad) Laboratory Tests Test 06/16/20 12:19 Bedside Glucose 110 Current Medications Medications (Trade) Dose Ordered Sig/Mandie Route PRN Reason Start Time Stop Time Status Last Admin Dose Admin Ondansetron HCl (Zofran) 4 mg STAT STAT IV 06/11/20 23:25 06/11/20 23:27 DC 06/11/20 23:43 Sodium Chloride 1,000 ml @ 1,200 mls/hr Q50M STAT IV 06/11/20 23:25 06/12/20 00:14 DC 06/11/20 23:43 Fentanyl Citrate (Sublimaze) 50 mcg STAT STAT IV 06/11/20 23:29 06/12/20 05:23 DC 06/11/20 23:43 Sodium Chloride 1,000 ml @ ud STK-MED ONCE .ROUTE 06/11/20 23:28 06/11/20 23:30 DC Ondansetron HCl (Zofran) 4 mg STK-MED ONCE .ROUTE 06/11/20 23:29 06/11/20 23:31 DC Promethazine HCl (Phenergan) 25 mg STK-MED ONCE .ROUTE 06/12/20 00:13 06/12/20 00:15 DC Promethazine HCl (Phenergan) 25 mg STAT STAT IV 06/12/20 00:19 06/12/20 00:20 DC 06/12/20 00:20 Sodium Chloride 1,000 ml @ ud STK-MED ONCE .ROUTE 06/12/20 02:15 06/12/20 02:17 DC Promethazine HCl (Phenergan) 25 mg STK-MED ONCE .ROUTE 06/12/20 02:15 06/12/20 02:17 DC Fentanyl Citrate (Sublimaze) 50 mcg STAT STAT IV 06/12/20 02:17 06/12/20 02:19 DC 06/12/20 02:23 Promethazine HCl (Phenergan) 25 mg STAT STAT IV 06/12/20 02:17 06/12/20 02:19 DC 06/12/20 02:23 Sodium Chloride 1,000 ml @ 1,200 mls/hr Q50M STAT IV 06/12/20 02:17 06/12/20 03:06 DC 06/12/20 02:23 Sodium Chloride 1,000 ml @ 150 mls/hr OT ONCE IV 06/12/20 02:30 06/12/20 09:09 DC 06/12/20 02:45 Promethazine HCl (Phenergan) 25 mg Q6H PRN IV NAUSEA / VOMITING 06/12/20 02:30 07/12/20 02:29 Fentanyl Citrate (Sublimaze) 50 mcg Q4H PRN IV pain 06/12/20 02:30 06/12/20 18:34 DC 06/12/20 16:08 Ondansetron HCl (Zofran) 4 mg Q4H PRN IV NAUSEA / VOMITING 06/12/20 03:30 07/12/20 03:29 06/16/20 10:22 Ondansetron HCl (Zofran) 4 mg Q4H PRN IV NAUSEA / VOMITING 06/12/20 03:30 06/12/20 18:36 DC Promethazine HCl (Phenergan) 25 mg Q6H PRN IV NAUSEA / VOMITING 06/12/20 03:30 11/17/20 18:36 DC Potassium Chloride/Sodium Chloride 1,000 ml @ 100 mls/hr Q10H IV 06/12/20 03:30 07/12/20 03:29 06/16/20 17:34 Hydromorphone HCl (Dilaudid) 0.5 mg OT ONCE IV 06/12/20 19:00 06/12/20 20:33 DC 06/12/20 18:40 Hydromorphone HCl (Dilaudid) 2 mg STK-MED ONCE .ROUTE 06/12/20 18:33 06/12/20 18:35 DC Hydromorphone HCl (Dilaudid) 0.5 mg Q4H PRN IV PAIN 4-6 06/12/20 19:30 07/12/20 19:29 06/15/20 10:46 Hydromorphone HCl (Dilaudid) 1 mg Q4H PRN IV PAIN 7 - 10 06/12/20 19:30 07/12/20 19:29 06/16/20 17:00 Ketorolac Tromethamine (Toradol) 30 mg Q8HR IV 06/12/20 22:00 06/14/20 14:01 DC 06/14/20 09:42 Course Sepsis Screening Results: Posi: NEGATIVE Sepsis Qualifier/Stage: NO DEFINITE RISK Duration or Total Time Spent w: 30 min Vitals & review Data Vital Sign - Last 24 Hours 06/15/20 06/15/20 06/16/20 06/16/20 19:39 20:20 00:51 01:44 Temp 99.1 99.0 Pulse 84 75 74 Resp 18 18 18 B/P (MAP) 129/55 (79) Pulse Ox 95 99 O2 Delivery Nasal Cannula Room Air O2 Flow Rate 2.00 FiO2 28 06/16/20 06/16/20 06/16/20 06/16/20 04:39 08:00 08:00 12:30 Temp 98.5 98.2 98.4 Pulse 73 69 64 Resp 20 20 18 B/P (MAP) 124/51 (75) 132/64 (86) 127/64 (85) Pulse Ox 97 99 98 O2 Delivery Room Air 06/16/20 06/16/20 13:46 17:00 Temp 98.8 Pulse 64 68 Resp 18 18 B/P (MAP) 122/71 (88) Pulse Ox 95 98 O2 Delivery Nasal Cannula O2 Flow Rate 2.00 FiO2 28 Intake and Output 06/16/20 07:00 Output Total 400 ml Balance -400 ml Laboratory Tests Test 06/15/20 05:03 06/16/20 12:19 White Blood Count 6.8 10^3/uL Red Blood Count 4.31 10^6/uL Hemoglobin 13.4 g/dL Hematocrit 40.9 % Mean Corpuscular Volume 94.9 fL Mean Corpuscular Hemoglobin 31.1 pg Mean Corpuscular Hemoglobin Concent 32.8 g/dL Red Cell Distribution Width 12.1 % Platelet Count 246 10^3/uL Mean Platelet Volume 9.6 fL Neutrophils (%) (Auto) 69.4 % Lymphocytes (%) (Auto) 20.3 % Monocytes (%) (Auto) 9.2 % Neutrophils # (Auto) 4.7 10^3/uL Lymphocytes # (Auto) 1.37 10^3/uL1 Monocytes # (Auto) 0.6 10^3/uL Absolute Immature Granulocyte (auto 0.03 10^3 u/L Absolute Eosinophils (auto) 0.0 10^3/uL Immature Granulocytes % 0.40 % Eosinophils % 0.3 % Basophils % 0.4 % Basophils # 0.0 10^3/uL Sodium Level 143 mmol/L Potassium Level 4.1 mmol/L Chloride Level 107.0 mmol/L Carbon Dioxide Level 25.0 mmol/L Anion Gap 15.1 Blood Urea Nitrogen 25 mg/dL Creatinine 0.68 mg/dL Estimated GFR () 109.1 Est GFR (CKD-EPI)(Non-Afr Gibraltarian) 90.2 BUN/Creatinine Ratio 36.0 Glucose Level 110 mg/dL Calcium Level 8.1 mg/dL Total Bilirubin 0.5 mg/dL Aspartate Amino Transf (AST/SGOT) 26 U/L Alanine Aminotransferase (ALT/SGPT) 49 U/L Alkaline Phosphatase 80 U/L Total Protein 6.1 g/dL Albumin 3.1 g/dL Globulin 3.0 Albumin/Globulin Ratio 1.033 Bedside Glucose 110 LEVEL 1 SEPSIS INFECTION CRITE: Abdominal Pain LEVEL 2-SIRS (LIST ALL THAT AP: None/Not assessed Cardiovascular Evidence: Not Assessed or None Hematologic Evidence: None/Not assessed Hepatic Evidence: None/Not assessed Metabolic Evidence: None/Not assessed Neurological Evidence: None/Not assessed Respiratory Evidence: None/Not assessed Renal Evidence: None/Not assessed O2 Sat by Pulse Oximetry: 92 Respiratory End-tidal CO2: 133 Oxygen Flow Rate: 2.00 Assessment/Plan Assessment/Plan Assessment/Plan Ostomy herniation with anterior displacement Nausea and vomiting - minimal since NG-tube removed Small bowel dilatation HTN- improved with decreased pain and anxiety Complaints of dyspnea and chest burning -suspected acid reflux associated History of Araiza's esophagus? Laryngeal pain with Upper airway adventitial sounds -likely acid reflux inflammation Multifocal infiltrates- ? aspiration, COVID not as likely Anxiety PLAN: Discussed esophageal issues including reflux associated pathologies -Would recommend EGD as an outpatient to reassess esophagus / ? hiatal hernia For now, will start back on PPI Empiric antibiotic with Augmentin Continue advanced diet Check COVID-19 state version Will discharge in am Plan Ostomy herniation with anterior displacement Nausea and vomiting - minimal since NG-tube removed Small bowel dilatation HTN- improved with decreased pain and anxiety Dyspnea with pleuritic pain on attempted deep inspiration Laryngeal pain Upper airway adventitial sounds Anxiety PLAN: Continue advanced diet and monitor for tolerance tonight Check COVID-19 and BNP along with CXR and ABG Ventolin HFA Carafate and /or Pepcid STEVE CARDOZO MD Jun 18, 2020 16:49
[2020-06-18] MEDS: LOVENOX SQ SCH (17:57)
[2020-06-18 20:01] VITALS: BP 153/80
[2020-06-18] MEDS: AUGMENTIN 875-125 TABLET PO SCH (20:26)
--- NOTE | 2020-06-18 21:27 | NUR ---
pt transferred back to 2nd floor room 233 at apprx [id number]; report called to charge nurse Donald via telephione; pt transported via WC by SIRISHA
[2020-06-19 01:07] VITALS: BP 139/82
--- NOTE | 2020-06-19 04:05 | NUR ---
New bag of 0.9 NS not administered, 500cc of NS still infusing from previous shift. No signs or symptoms of infiltration, PT is resting in bed with call light within reach no acute distress noted.
[2020-06-19] MEDS: NS 1000ML/KCL 20MEQ 1,000 ML IV SCH (05:30)
--- NOTE | 2020-06-19 07:00 | NUR ---
Bedside report recieved pt in bed with eyes closed easily aroused denies pain no s/s of distress noted call light placed within easy reach bed locked and in lowest position side rails up x2 will continue to monitor
[2020-06-19 07:25] VITALS: BP 136/83
[2020-06-19 08:00] VITALS: BP 130/83
[2020-06-19] MEDS ORDERED: PROTONIX PO SCH (09:00)
[2020-06-19] MEDS: VENTOLIN HFA IH SCH (09:10)
[2020-06-19] MEDS: PEPCID PO SCH (09:25)
[2020-06-19] MEDS: AUGMENTIN 875-125 TABLET PO SCH (10:06)
[2020-06-19] MEDS: DILAUDID IV PRN (12:10)
[2020-06-19 12:18] VITALS: BP 145/88
[2020-06-19] MEDS ORDERED: AMOX1TAB63 PO (12:37)
[2020-06-19] MEDS ORDERED: PANT40TA3 PO (12:37)
--- NOTE | 2020-06-19 12:59 | PRM.DC ---
Discharge Summary Date of Discharge: Jun 19, 2020 Time of Request to Discharge: 11:00 Reason for Visit: Abdominal pain with intractable nausea and vomiting admitted Hospital Course 54 yo woman with a history of prior colon cancer with diverting colostomy and history of small bowel distention / obstruction as well as obesity who presented to ER with severe lower and mid abdominal pain with intractable nausea and vomiting on 06/12/2020. She was found to have a parastomal hernia, but this was note deemed to need any emergent surgical address. Seen by Surgery and NG-tube placed along with IV fluids and anti-emetics as well as Dilauded for pain. There was some question of small bowel obstruction by Radiology, but Surgical impression was more one of ileus. Her presenting symptoms gradually improved over the first two days and her NG tube was first clamped and then removed. Diet was advance slowly with generally ok tolerance with very small volume meals. She did seem to suffer from reflux symptoms with burning extending up into her upper chest and complaining of throat discomfort as high-pitched upper airway adventitial sounds. She was started on Pepcid with some improvement. Initially considered for discharge on 06/18, this was held up secondary to acute dyspnea and pleuritic pain which left her unable / unwilling to take a deep inspiration. A subsequent d-dimer was elevated to 1.94 but fortunately a follow-up Chest CT showed no evidence for PE, but did show some bilateral lower lobe infiltrates / small effusions along with a right upper lobe infiltrate. My differential included possible aspiration related issues and so she was sent out on PPI along with Augmentin bid for 5 days Additional Comments Currently entirely hemodynamically stable, afebrile. Does continue to complain of some mid substernal discomfort worsened by inspiration, but otherwise without new complaints Patient History: FHx: prostate cancer General: Alert, Oriented X3, Cooperative, No acute distress HEENT: PERRLA, EOMI, Mucous membr. moist/pink Neck: No JVD, No thyromegaly, +2 carotid pulse wo bruit, No LAD Heart: Regular rate, Normal S1, Normal S2, No murmurs Abdomen: Normal bowel sounds, Soft, No tenderness, Other (colostomy bag in place with modest amount of stool) Extremities: No clubbing, No cyanosis, No edema, Normal pulses, No tenderness/swelling Skin: No rashes Neuro: Normal gait, Normal speech, Sensation intact, Cranial nerves 3-12 NL Psych/Mental Status: Mental status NL Procedures NG tube placement Results(Labs/Rad) WBC- 6.8, Hgb 13.4, Plt 246, normal differential BUN 25 with creatinine of 0.68 Calcium 8.1 Total bilirubin 0.5 AST 25 ALT of 49 Alkaline phosphatase 80 Albumin 3.1 Scheduled Amoxicillin/Potassium Clav (Augmentin 875-125 Tablet), 1 EACH PO BID Hydrochlorothiazide (Hydrochlorothiazide), 1 TAB PO DAILY, (Reported) Lisinopril (Lisinopril), 1 TAB PO DAILY, (Reported) Pantoprazole Sodium (Protonix), 40 MG PO DAILY Scheduled PRN [Acetaminophen], 500 MG PO Q6H PRN for PAIN Sepsis Evaluation @ Discharge Vital Sign - Last 24 Hours 06/15/20 06/15/20 06/16/20 06/16/20 19:39 20:20 00:51 01:44 Temp 99.1 99.0 Pulse 84 75 74 Resp 18 18 18 B/P (MAP) 129/55 (79) Pulse Ox 95 99 O2 Delivery Nasal Cannula Room Air O2 Flow Rate 2.00 FiO2 28 06/16/20 06/16/20 06/16/20 06/16/20 04:39 08:00 08:00 12:30 Temp 98.5 98.2 98.4 Pulse 73 69 64 Resp 20 20 18 B/P (MAP) 124/51 (75) 132/64 (86) 127/64 (85) Pulse Ox 97 99 98 O2 Delivery Room Air 06/16/20 06/16/20 13:46 17:00 Temp 98.8 Pulse 64 68 Resp 18 18 B/P (MAP) 122/71 (88) Pulse Ox 95 98 O2 Delivery Nasal Cannula O2 Flow Rate 2.00 FiO2 28 Intake and Output 06/16/20 07:00 Output Total 400 ml Balance -400 ml Laboratory Tests Test 06/15/20 05:03 06/16/20 12:19 White Blood Count 6.8 10^3/uL Red Blood Count 4.31 10^6/uL Hemoglobin 13.4 g/dL Hematocrit 40.9 % Mean Corpuscular Volume 94.9 fL Mean Corpuscular Hemoglobin 31.1 pg Mean Corpuscular Hemoglobin Concent 32.8 g/dL Red Cell Distribution Width 12.1 % Platelet Count 246 10^3/uL Mean Platelet Volume 9.6 fL Neutrophils (%) (Auto) 69.4 % Lymphocytes (%) (Auto) 20.3 % Monocytes (%) (Auto) 9.2 % Neutrophils # (Auto) 4.7 10^3/uL Lymphocytes # (Auto) 1.37 10^3/uL1 Monocytes # (Auto) 0.6 10^3/uL Absolute Immature Granulocyte (auto 0.03 10^3 u/L Absolute Eosinophils (auto) 0.0 10^3/uL Immature Granulocytes % 0.40 % Eosinophils % 0.3 % Basophils % 0.4 % Basophils # 0.0 10^3/uL Sodium Level 143 mmol/L Potassium Level 4.1 mmol/L Chloride Level 107.0 mmol/L Carbon Dioxide Level 25.0 mmol/L Anion Gap 15.1 Blood Urea Nitrogen 25 mg/dL Creatinine 0.68 mg/dL Estimated GFR () 109.1 Est GFR (CKD-EPI)(Non-Afr Salvadorean) 90.2 BUN/Creatinine Ratio 36.0 Glucose Level 110 mg/dL Calcium Level 8.1 mg/dL Total Bilirubin 0.5 mg/dL Aspartate Amino Transf (AST/SGOT) 26 U/L Alanine Aminotransferase (ALT/SGPT) 49 U/L Alkaline Phosphatase 80 U/L Total Protein 6.1 g/dL Albumin 3.1 g/dL Globulin 3.0 Albumin/Globulin Ratio 1.033 Bedside Glucose 110 Stroke Discharge Summary Discharge on Anti-Thrombotics: No Discharge on Antcoagulation Th: No Discharge on Statins: No Course Sepsis Screening Results: Posi: NEGATIVE Sepsis Qualifier/Stage: NO DEFINITE RISK Duration or Total Time Spent w: 30 min Vitals & review Data Vital Sign - Last 24 Hours 06/15/20 06/15/20 06/16/20 06/16/20 19:39 20:20 00:51 01:44 Temp 99.1 99.0 Pulse 84 75 74 Resp 18 18 18 B/P (MAP) 129/55 (79) Pulse Ox 95 99 O2 Delivery Nasal Cannula Room Air O2 Flow Rate 2.00 FiO2 28 06/16/20 06/16/20 06/16/20 06/16/20 04:39 08:00 08:00 12:30 Temp 98.5 98.2 98.4 Pulse 73 69 64 Resp 20 20 18 B/P (MAP) 124/51 (75) 132/64 (86) 127/64 (85) Pulse Ox 97 99 98 O2 Delivery Room Air 06/16/20 06/16/20 13:46 17:00 Temp 98.8 Pulse 64 68 Resp 18 18 B/P (MAP) 122/71 (88) Pulse Ox 95 98 O2 Delivery Nasal Cannula O2 Flow Rate 2.00 FiO2 28 Intake and Output 06/16/20 07:00 Output Total 400 ml Balance -400 ml Laboratory Tests Test 06/15/20 05:03 06/16/20 12:19 White Blood Count 6.8 10^3/uL Red Blood Count 4.31 10^6/uL Hemoglobin 13.4 g/dL Hematocrit 40.9 % Mean Corpuscular Volume 94.9 fL Mean Corpuscular Hemoglobin 31.1 pg Mean Corpuscular Hemoglobin Concent 32.8 g/dL Red Cell Distribution Width 12.1 % Platelet Count 246 10^3/uL Mean Platelet Volume 9.6 fL Neutrophils (%) (Auto) 69.4 % Lymphocytes (%) (Auto) 20.3 % Monocytes (%) (Auto) 9.2 % Neutrophils # (Auto) 4.7 10^3/uL Lymphocytes # (Auto) 1.37 10^3/uL1 Monocytes # (Auto) 0.6 10^3/uL Absolute Immature Granulocyte (auto 0.03 10^3 u/L Absolute Eosinophils (auto) 0.0 10^3/uL Immature Granulocytes % 0.40 % Eosinophils % 0.3 % Basophils % 0.4 % Basophils # 0.0 10^3/uL Sodium Level 143 mmol/L Potassium Level 4.1 mmol/L Chloride Level 107.0 mmol/L Carbon Dioxide Level 25.0 mmol/L Anion Gap 15.1 Blood Urea Nitrogen 25 mg/dL Creatinine 0.68 mg/dL Estimated GFR () 109.1 Est GFR (CKD-EPI)(Non-Afr Salvadorean) 90.2 BUN/Creatinine Ratio 36.0 Glucose Level 110 mg/dL Calcium Level 8.1 mg/dL Total Bilirubin 0.5 mg/dL Aspartate Amino Transf (AST/SGOT) 26 U/L Alanine Aminotransferase (ALT/SGPT) 49 U/L Alkaline Phosphatase 80 U/L Total Protein 6.1 g/dL Albumin 3.1 g/dL Globulin 3.0 Albumin/Globulin Ratio 1.033 Bedside Glucose 110 LEVEL 1 SEPSIS INFECTION CRITE: ABX Therapy, Abdominal Pain, Cough/Shortness of Breath, Flu-Pneumonia LEVEL 2-SIRS (LIST ALL THAT AP: None/Not assessed Cardiovascular Evidence: Not Assessed or None Hematologic Evidence: None/Not assessed Hepatic Evidence: None/Not assessed Metabolic Evidence: None/Not assessed Neurological Evidence: None/Not assessed Respiratory Evidence: None/Not assessed Renal Evidence: None/Not assessed O2 Sat by Pulse Oximetry: 96 Respiratory End-tidal CO2: 133 Oxygen Flow Rate: 2.00 Plan Assessment ASSESSMENT: Intractable Nausea and vomiting -resolved Abdominal pain Parastomal hernia Dilated loops of small bowel with ? of partial bowel obstruction vs. ileus -resolved with conservative treatment- NG tube History of colon cancer with diverting colostomy Acid reflux with pharyngeal burning and laryngeal inflammation Upper airway adventitial sounds Bilateral multifocal infiltrates -bilateral lower lobe with small effusions as well as RUL infiltrate Hypertension Obesity PLAN Patient discharged to home today To complete 7 day course of Augmentin bid Continue Protonix as prescribed -avoid laying down for 3 hours after eating Would recommend follow up with a general or Oncological Surgeon to reassess your parastomal herniation Contact MD for any acute recurrent abdominal pain or vomiting Recommend following a low fat diet and increase your daily exercise activity Continue your current hypertension medications Discharge Date: Jun 19, 2020 Dicharge DX: As above STEVE CARDOZO MD Jun 19, 2020 12:59
--- NOTE | 2020-06-19 13:37 | NUR ---
ROOM AIR CHALLENGE PT PLACED IN ROOM AIR. SPO2 DECREASED TO 79% ON ROOM AIR. PT PLACED ON 2L PER NC AND SPO2 INCREASED TO 94% ON 2LPM PER NC. NO DISTRESS NOTED.
--- NOTE | 2020-06-19 14:12 | NUR ---
ROTECH/OXYGEN O2 ORDER FAXED TO [facility] AND NOHEMY NOTIFIED OF ORDER. IF PATIENT IS NOT REQUIRING 02 ALL THE TIME AND JUST PRN PATIENT CAN AQUEDUCT AND RESERVOIR KEEPER HER 0XYGEN AT [facility].
--- NOTE | 2020-06-19 15:08 | NUR ---
Pt discharged to home with spouse. Pt is awake alert ambulatory and oriented denies pain vital signs stable 132/72, Sat 96% on room air, Pulse 78, Temp 98.7 Resp 20. Pt and spouse educated on all discharge instructions, RX, follow up instructions and home oxygen use. Pt and spouse verbalized understanding all questions answered. Pt off the unit to via wheelchair
[2020-06-19 15:10] VITALS: BP 145/88
== END 2020-06-19 15:06 | disposition home or self-care (01) | DRG 394 ==
LOC: ER 23:04 → EDBD 23:04 → MS 06-12 02:35
PROVIDERS: ADMIT Family Medicine; ATTEND Internal Medicine
PROC: 0D9670Z Drainage of Stomach with Drainage Device, Via Natural or Artificial Opening (ICD-10-PCS; principal; 2020-06-12)
DX: K43.3 Parastomal hernia with obstruction, without gangrene (principal); Z68.41 Body mass index [BMI] 40.0-44.9, adult; K56.690 Other partial intestinal obstruction; J90 Pleural effusion, not elsewhere classified; E66.9 Obesity, unspecified; E78.00 Pure hypercholesterolemia, unspecified; F41.9 Anxiety disorder, unspecified; I10 Essential (primary) hypertension; K21.9 Gastro-esophageal reflux disease without esophagitis; R73.03 Prediabetes; K22.70 Barrett's esophagus without dysplasia; Z20.828 Contact with and (suspected) exposure to other viral communicable diseases; R07.0 Pain in throat; Z80.42 Family history of malignant neoplasm of prostate; Z85.048 Personal history of other malignant neoplasm of rectum, rectosigmoid junction, and anus; Z90.710 Acquired absence of both cervix and uterus; Z93.3 Colostomy status; Z79.1 Long term (current) use of non-steroidal anti-inflammatories (NSAID); Z79.899 Other long term (current) drug therapy; Z92.21 Personal history of antineoplastic chemotherapy
CPT/HCPCS: 36415; 36600; 71045; 71275; 74018; 74019; 74021; 74177; 76705; 80053; 81003; 82150; 82803; 82948; 83690; 85025; 85379; 85610; 85730; 87426; 94640; 99285; G0378; J1170; J1650; J1885; J2405; J2550; J3010; J7030; J7611; Q9965